=== PATIENT | female | born 1935 | race Caucasian/White ===

== ENCOUNTER → 2016-10-02 | Outpatient (CLI) | payer MEDICARE ==
[~2016-10-02] MED LIST: ALN70T; ALPR0.25 PO; ASP81TEC; ATOR10TA66; DICL75TA2; EZET10TA5; FENT1PAT9; HCT25T; LVT.05T; OMEP20CA12; ONDA4TAB8 PO; PRV20T; centrum silver; viactiv
--- NOTE | 2016-10-02 15:23 | Diagnostic Imaging Report ---
INDICATION: Digital mammogram bilateral screening. This study was compared to the prior exam of 09/27/15, 02/11/14 and 12/19/12. At this time, there are no current complaints. The current study was also evaluated with a Computer Aided Detection (CAD) system. FINDINGS: The fibroglandular tissue in both breasts is heterogeneously dense. This does limit the sensitivity of this exam. Overall, there does not appear to have been any significant change when compared to the prior study. No primary or secondary sign of malignancy is noted. IMPRESSION: There is no radiographic evidence for malignancy. ACR BI-RADS Category 1: Negative. Result letter will be mailed to the patient. Note: At least 10% of breast cancer is not imaged by mammography. Dictated by: Dictated on workstation # [id number]
== END ==
LOC: RAD 08:58
PROVIDERS: ATTEND Nurse Practitioner Family
DX: Z12.31 Encounter for screening mammogram for malignant neoplasm of breast (principal)

== ENCOUNTER → 2016-11-22 | Outpatient (CLI) | payer MEDICARE ==
--- OUTSIDE RECORDS SUMMARY | 2016-11-22 15:25 | XMS REPORT | Continuity of Care Document ---
Author Author [facility] Organization [facility] Address Unknown Phone Unavailable Allergies Active Description Code Type Severity Reaction Onset Reported/Identified Relationship to Patient Clinical Status Yes raloxifene [id number] Drug Allergy Unknown N/A 02/09/2008 Yes ciprofloxacin [id number] Drug Allergy Mild N/A 09/21/2015 Yes gabapentin [id number] Drug Allergy Mild N/A 09/21/2015 Yes methylprednisolone [id number] Drug Allergy Mild N/A 09/21/2015 Yes promethazine [id number] Drug Allergy Mild N/A 09/21/2015 Yes tramadol [id number] Drug Allergy Mild N/A 09/21/2015 Yes Penicillins [id number] Drug Allergy Moderate RASH 11/25/2015 Medications Problems Date Dx Coded Attending Type Code Diagnosis Diagnosed By 05/01/2010 Ot 530.81 05/01/2010 Ot 535.40 05/01/2010 Ot 569.0 05/01/2010 Ot 578.1 08/20/2013 LINDA FOUNTAIN, VICTORINO Azar Ot 723.4 BRACHIAL NEURITIS NOS 12/09/2014 Ot 625.8 12/17/2014 Ot 625.8 09/15/2015 Ot V76.12 09/15/2015 Ot 722.10 09/15/2015 Ot V45.4 09/15/2015 Ot 733.90 09/15/2015 Ot V76.12 09/15/2015 EVELINA MCDANIEL Ot V76.12 09/15/2015 Ot 625.8 09/21/2015 Ot V76.12 09/21/2015 Ot 722.10 09/21/2015 Ot V45.4 09/21/2015 Ot 733.90 09/21/2015 Ot V76.12 09/21/2015 EVELINA MCDANIEL Ot V76.12 09/21/2015 Ot 625.8 09/21/2015 MICHELLE FOUNTAIN, KYRIE Azar Ot M54.5 09/21/2015 LAXMI MÁRQUEZ DO Ot 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 09/21/2015 LAXMI MÁRQUEZ DO Ot K42.9 UMBILICAL HERNIA WITHOUT OBSTRUCTION OR 09/21/2015 LAXMI MÁRQUEZ DO Ot K57.90 DVRTCLOS OF INTEST, PART UNSP, W/O PERF 09/21/2015 LAXMI MÁRQUEZ DO Ot R10.30 LOWER ABDOMINAL PAIN, UNSPECIFIED 09/21/2015 LAXMI MÁRQUEZ DO Ot R11.2 NAUSEA WITH VOMITING, UNSPECIFIED 10/21/2015 Ot V76.12 10/21/2015 Ot 722.10 10/21/2015 Ot V45.4 10/21/2015 Ot 733.90 10/21/2015 Ot V76.12 10/21/2015 EVELINA MCDANIEL Ot V76.12 10/21/2015 Ot 625.8 10/21/2015 KYRIE MARTINEZ MD Ot M54.5 10/21/2015 HA LAWRENCE APRN Ot Z12.31 10/21/2015 KYRIE MARTINEZ MD Ot M51.16 INTERVERTEBRAL DISC DISORDERS W RADICULO 10/21/2015 KYRIE MARTINEZ MD Ot M53.3 SACROCOCCYGEAL DISORDERS, NOT ELSEWHERE 10/21/2015 KYRIE MARTINEZ MD Ot M96.1 POSTLAMINECTOMY SYNDROME, NOT ELSEWHERE 10/21/2015 KYRIE MARTINEZ MD Ot Z79.899 OTHER GROUP HOME (CURRENT) DRUG THERAPY 10/25/2015 HA LAWRENCE APRN Ot Z12.31 11/18/2015 JA SANCHEZ DO Ot I51.7 CARDIOMEGALY 11/18/2015 JA SANCHEZ DO Ot K21.9 GASTRO-ESOPHAGEAL REFLUX DISEASE WITHOUT 11/18/2015 JA SANCHEZ DO Ot K59.00 CONSTIPATION, UNSPECIFIED 11/18/2015 JA SANCHEZ DO Ot M19.90 UNSPECIFIED OSTEOARTHRITIS, UNSPECIFIED 11/18/2015 JA SANCHEZ DO Ot R25.2 CRAMP AND SPASM 11/18/2015 JA SANCHEZ DO, Ot T46.6X5A ADVERSE EFFECT OF ANTIHYPERLIP AND ANTIA 11/25/2015 ANDRIA MILLAN MD Ot G89.29 OTHER CHRONIC PAIN 11/25/2015 ODGERS MD, ANDRIA K Ot R10.13 EPIGASTRIC PAIN 11/25/2015 YANA FOUNTAIN, ANDRIA Alcantar Ot R11.10 VOMITING, UNSPECIFIED 11/26/2015 YANA FOUNTAIN, ANDRIA Alcantar Ot G89.29 11/26/2015 ANDRIA MILLAN MD Ot R10.13 11/26/2015 ANDRIA MILLAN MD Ot R11.10 11/27/2015 ANDRIA MILLAN MD Ot G89.29 11/27/2015 ANDRIA MILLAN MD Ot R10.13 11/27/2015 ANDRIA MILLAN MD Ot R11.10 12/30/2015 HA LAWRENCE CLIENT INSIGHTS CONSULTANT Ot R10.2 PELVIC AND PERINEAL PAIN 12/30/2015 HA LAWRENCE CLIENT INSIGHTS CONSULTANT Ot R10.31 RIGHT LOWER QUADRANT PAIN 12/30/2015 HA LAWRENCE CLIENT INSIGHTS CONSULTANT Ot R10.32 LEFT LOWER QUADRANT PAIN 01/04/2016 SAMI SORIA Ot K57.90 DVRTCLOS OF INTEST, PART UNSP, W/O PERF 01/05/2016 HA LAWRENCE CLIENT INSIGHTS CONSULTANT Ot R10.2 PELVIC AND PERINEAL PAIN 01/05/2016 HA LAWRENCE CLIENT INSIGHTS CONSULTANT Ot R10.31 RIGHT LOWER QUADRANT PAIN 01/05/2016 HA LAWRENCE CLIENT INSIGHTS CONSULTANT Ot R10.32 LEFT LOWER QUADRANT PAIN 01/25/2016 SAMI SORIA Ot K57.90 DVRTCLOS OF INTEST, PART UNSP, W/O PERF 02/03/2016 SAMI SORIA Ot K57.90 DVRTCLOS OF INTEST, PART UNSP, W/O PERF 09/27/2016 Ot 722.10 LUMBAR DISC DISPLACEMENT 09/27/2016 Ot V45.4 ARTHRODESIS STATUS 09/27/2016 Ot 733.90 BONE CARTILAGE DIS NOS 09/27/2016 Ot V76.12 OTH SCREEN MAMMO-MALIGN NEOPLASM OF CATHI 09/27/2016 EVELINA MCDANIEL Ot V76.12 OTH SCREEN MAMMO-MALIGN NEOPLASM OF CATHI 09/27/2016 Ot 625.8 FEM GENITAL SYMPTOMS NEC 09/27/2016 MICHELLE FOUNTAIN, KYRIE Azar Ot M54.5 LOW BACK PAIN 09/27/2016 HA LAWRENCE CLIENT INSIGHTS CONSULTANT Ot Z12.31 ENCNTR SCREEN MAMMOGRAM FOR MALIGNANT NE 09/27/2016 HA LAWRENCE CLIENT INSIGHTS CONSULTANT Ot R10.2 PELVIC AND PERINEAL PAIN 09/27/2016 HA LAWRENCE CLIENT INSIGHTS CONSULTANT Ot R10.31 RIGHT LOWER QUADRANT PAIN 09/27/2016 HA LAWRENCE CLIENT INSIGHTS CONSULTANT Ot R10.32 LEFT LOWER QUADRANT PAIN 09/27/2016 SAMI SORIA Ot K57.90 DVRTCLOS OF INTEST, PART UNSP, W/O PERF 10/02/2016 HA LAWRENCE CLIENT INSIGHTS CONSULTANT Ot Z12.31 ENCNTR SCREEN MAMMOGRAM FOR MALIGNANT NE 10/03/2016 HA LAWRENCE APRN Ot Z12.31 ENCNTR SCREEN MAMMOGRAM FOR MALIGNANT NE 10/30/2016 HA LAWRENCE APRN Ot Z12.31 ENCNTR SCREEN MAMMOGRAM FOR MALIGNANT NE 11/22/2016 Ot 722.10 LUMBAR DISC DISPLACEMENT 11/22/2016 Ot V45.4 ARTHRODESIS STATUS 11/22/2016 Ot 733.90 BONE CARTILAGE DIS NOS 11/22/2016 Ot V76.12 OTH SCREEN MAMMO-MALIGN NEOPLASM OF CATHI 11/22/2016 EVELINA MCDANIEL Ot V76.12 OTH SCREEN MAMMO-MALIGN NEOPLASM OF CATHI 11/22/2016 Ot 625.8 FEM GENITAL SYMPTOMS NEC 11/22/2016 MICHELLE FOUNTAIN, KYRIE Azar Ot M54.5 LOW BACK PAIN 11/22/2016 HA LAWRENCE APRN Ot Z12.31 ENCNTR SCREEN MAMMOGRAM FOR MALIGNANT NE 11/22/2016 HA LAWRENCE APRN Ot R10.2 PELVIC AND PERINEAL PAIN 11/22/2016 HA LAWRENCE APRN Ot R10.31 RIGHT LOWER QUADRANT PAIN 11/22/2016 HA LAWRENCE APRN Ot R10.32 LEFT LOWER QUADRANT PAIN 11/22/2016 SAMI SORIA Ot K57.90 DVRTCLOS OF INTEST, PART UNSP, W/O PERF 11/22/2016 HA LAWRENCE CLIENT INSIGHTS CONSULTANT Ot Z12.31 ENCNTR SCREEN MAMMOGRAM FOR MALIGNANT NE Procedures Results Encounters ACCT No. Visit Date/Time Discharge Status Pt. Type Provider Facility Loc./Unit Complaint [id number] 11/25/2015 05:48:00 2015 09:14:00 DIS Emergency YANA FOUNTAIN, ANDRIA Katharine [facility] ER ABDOMINAL PAIN,VOMITING [id number] 11/18/2015 02:35:00 2015 04:43:00 DIS Emergency JA SANCHEZ DO [facility] ER BURNING THRU CHEST,LEGS NUMB,NAUSEA [id number] 10/21/2015 11:34:00 2015 12:35:00 DIS Outpatient KYRIE MARTINEZ MD [facility] CARD DISC DISORDER SACROCOCCYGEAL DISORDER [id number] 09/21/2015 06:41:00 2015 09:23:00 DIS Emergency LAXMI MÁRQUEZ DO [facility] ER ABD PAIN [id number] 02/11/2014 08:02:00 2013 23:59:59 CLS Outpatient EVELINA MCDANIEL [facility] RAD SCREENING [id number] 08/20/2013 07:40:00 2012 13:55:00 DIS Outpatient VICTORINO MCKEON MD [facility] RAD CERVICAL RADICULOPATHY [id number] 11/22/2016 15:21:00 ACT Outpatient HA LAWRENCE APRN [facility] RAD LOW ABDOMINAL PAIN [id number] 10/02/2016 08:58:00 ACT Outpatient HA LAWRENCE APRN [facility] RAD SCREENING [id number] 01/03/2016 14:10:00 ACT Outpatient SAMI SORIA [facility] RAD LOWER ABD PAIN,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 [id number] 11/17/2015 15:59:00 ACT Outpatient HA LAWRENCE APRN [facility] RAD ABD PAIN [id number] 09/27/2015 09:20:00 ACT Outpatient HA LAWRENCE APRN [facility] RAD SCREENING [id number] 09/15/2015 09:33:00 ACT Outpatient KYRIE MARTINEZ MD [facility] RAD LOW PAIN BACK [id number] 11/16/2014 12:12:00 Document Registration [id number] 12/19/2012 09:12:00 Document Registration [id number] 08/09/2011 09:45:00 Document Registration [id number] 01/31/2011 06:55:00 Document Registration [id number] 05/01/2010 07:17:00 Document Registration
--- NOTE | 2016-11-22 17:09 | Diagnostic Imaging Report ---
INDICATION: Right lower quadrant pain and hematuria. KUB obtained at 03:45 p.m. and is compared to 11/25/2015. Postop changes in the lumbar spine are again noted. Metallic lead overlying the right side of the pelvis is again noted. There is degenerative change of the SI joints and lower lumbar spine. Bowel gas pattern is unremarkable. There is no suspicious calcification. There are some phleboliths on the left side of the pelvis which are unchanged compared to the prior study. IMPRESSION: Stable appearance compared with 11/25/2015. No suspicious calcification. Chronic bony changes as described above. Dictated by: Dictated on workstation # [id number]
== END ==
LOC: RAD 15:21
PROVIDERS: ATTEND Nurse Practitioner Family
DX: R10.31 Right lower quadrant pain (principal); R31.9 Hematuria, unspecified
CPT/HCPCS: 74000

== ENCOUNTER 2017-09-28 23:17 | Emergency (ER) | payer MEDICARE ==
[~2017-09-28] VITALS: Ht 152.4 cm; Wt 55.3 kg
--- OUTSIDE RECORDS SUMMARY | 2017-09-28 23:24 | XMS REPORT | Continuity of Care Document ---
Author Author [facility] Organization [facility] Address Unknown Phone Unavailable Allergies Active Description Code Type Severity Reaction Onset Reported/Identified Relationship to Patient Clinical Status Yes raloxifene [id number] Drug Allergy Unknown N/A 02/09/2008 Yes ciprofloxacin [id number] Drug Allergy Mild N/A 09/21/2015 Yes gabapentin [id number] Drug Allergy Mild N/A 09/21/2015 Yes methylprednisolone [id number] Drug Allergy Mild N/A 09/21/2015 Yes promethazine [id number] Drug Allergy Mild N/A 09/21/2015 Yes tramadol [id number] Drug Allergy Mild N/A 09/21/2015 Yes Penicillins [id number] Drug Allergy Moderate RASH 11/25/2015 Medications There is no data. Problems Date Dx Coded Attending Type Code [...] MCDANIEL Ot V76.12 09/21/2015 Ot 625.8 09/21/2015 KYRIE MARTINEZ MD Ot M54.5 09/21/2015 LAXMI MÁRQUEZ DO Ot [...] 10/21/2015 KYRIE MARTINEZ MD Ot Z79.899 OTHER EXCHANGE ARCHITECT (CURRENT) DRUG THERAPY 10/25/2015 HA LAWRENCE APRN [...] MD Ot G89.29 OTHER CHRONIC PAIN 11/25/2015 YANA FOUNTAIN, ANDRIA Alcantar Ot R10.13 EPIGASTRIC PAIN 11/25/2015 YANA FOUNTAIN, ANDRIA Alcantar Ot R11.10 VOMITING, UNSPECIFIED 11/26/2015 YANA FOUNTAIN, ANDRIA Alcantar Ot G89.29 11/26/2015 ANDRIA MILLAN MD Ot R10.13 11/26/2015 ANDRIA MILLAN MD Ot R11.10 11/27/2015 ANDRIA MILLAN MD Ot G89.29 11/27/2015 ANDRIA MILLAN MD Ot R10.13 11/27/2015 ANDRIA MILLAN MD Ot R11.10 12/30/2015 HA LAWRENCE GREASE PRESS HELPER Ot R10.2 PELVIC AND PERINEAL PAIN 12/30/2015 HA LAWRENCE GREASE PRESS HELPER Ot R10.31 RIGHT LOWER QUADRANT PAIN 12/30/2015 HA LAWRENCE APRN Ot R10.32 LEFT LOWER QUADRANT PAIN 01/04/2016 SAMI SORIA Ot K57.90 DVRTCLOS OF INTEST, PART UNSP, W/O PERF 01/05/2016 HA LAWRENCE GREASE PRESS HELPER Ot R10.2 PELVIC AND PERINEAL PAIN 01/05/2016 HA LAWRENCE GREASE PRESS HELPER Ot R10.31 RIGHT LOWER QUADRANT PAIN 01/05/2016 HA LAWRENCE GREASE PRESS HELPER Ot R10.32 LEFT LOWER QUADRANT PAIN 01/25/2016 [...] M54.5 LOW BACK PAIN 09/27/2016 HA LAWRENCE APRN Ot Z12.31 ENCNTR SCREEN MAMMOGRAM FOR MALIGNANT NE 09/27/2016 HA LAWRENCE GREASE PRESS HELPER Ot R10.2 PELVIC AND PERINEAL PAIN 09/27/2016 HA LAWRENCE GREASE PRESS HELPER Ot R10.31 RIGHT LOWER QUADRANT PAIN 09/27/2016 HA LAWRENCE APRN Ot R10.32 LEFT LOWER QUADRANT PAIN 09/27/2016 SAMI SORIA Ot K57.90 DVRTCLOS OF INTEST, PART UNSP, W/O PERF 10/02/2016 AH LAWRENCE GREASE PRESS HELPER Ot Z12.31 ENCNTR SCREEN MAMMOGRAM FOR MALIGNANT NE 10/03/2016 HA LAWRENCE APRN Ot Z12.31 ENCNTR SCREEN MAMMOGRAM FOR MALIGNANT NE 10/30/2016 HA LAWRENCE GREASE PRESS HELPER Ot Z12.31 ENCNTR SCREEN MAMMOGRAM FOR MALIGNANT NE 11/22/2016 Ot 722.10 LUMBAR DISC DISPLACEMENT 11/22/2016 Ot V45.4 ARTHRODESIS STATUS 11/22/2016 Ot 733.90 BONE CARTILAGE DIS NOS 11/22/2016 Ot V76.12 OTH SCREEN MAMMO-MALIGN NEOPLASM OF CATHI 11/22/2016 EVELINA MCDANIELP Ot V76.12 OTH SCREEN MAMMO-MALIGN NEOPLASM OF CATHI 11/22/2016 Ot 625.8 FEM GENITAL SYMPTOMS NEC 11/22/2016 MICHELLE FOUNTAIN, KYRIE Azar Ot M54.5 LOW BACK PAIN 11/22/2016 HA LAWRENCE GREASE PRESS HELPER Ot Z12.31 ENCNTR SCREEN MAMMOGRAM FOR MALIGNANT NE 11/22/2016 HA LAWRENCE GREASE PRESS HELPER Ot R10.2 PELVIC AND PERINEAL PAIN 11/22/2016 HA LAWRENCE GREASE PRESS HELPER Ot R10.31 RIGHT LOWER QUADRANT PAIN 11/22/2016 HA LAWRENCE GREASE PRESS HELPER Ot R10.32 LEFT LOWER QUADRANT PAIN 11/22/2016 SAMI SORIA Ot K57.90 DVRTCLOS OF INTEST, PART UNSP, W/O PERF 11/22/2016 HA LAWRENCE APRN Ot Z12.31 ENCNTR SCREEN MAMMOGRAM FOR MALIGNANT NE 11/22/2016 HA LAWRENCE GREASE PRESS HELPER Ot R10.31 RIGHT LOWER QUADRANT PAIN 11/22/2016 HA LAWRENCE GREASE PRESS HELPER Ot R31.9 HEMATURIA, UNSPECIFIED 12/13/2016 HA LAWRENCE Leia GREASE PRESS HELPER Ot R10.31 RIGHT LOWER QUADRANT PAIN 12/13/2016 HA LAWRENCE Leia GREASE PRESS HELPER Ot R31.9 HEMATURIA, UNSPECIFIED 12/24/2016 HA LAWRENCE Leia GREASE PRESS HELPER Ot R10.31 RIGHT LOWER QUADRANT PAIN 12/24/2016 HA LAWRENCE Leia GREASE PRESS HELPER Ot R31.9 HEMATURIA, UNSPECIFIED Procedures There is no data. Results There is no data. Encounters ACCT No. Visit Date/Time Discharge Status Pt. Type Provider Facility Loc./Unit Complaint [id number] 09/17/2017 11:02:00 09/17/2017 23:59:59 CLS Preadmit HA LAWRENCE APRN [facility] RAD SCREENING [id number] 11/22/2016 15:21:00 11/22/2016 23:59:59 CLS Outpatient HA LAWRENCE APRN [facility] RAD LOW ABDOMINAL PAIN [id number] 10/02/2016 08:58:00 10/02/2016 23:59:59 CLS Outpatient HA LAWRENCE APRN [facility] RAD SCREENING [id number] 01/03/2016 14:10:00 01/03/2016 23:59:59 CLS Outpatient SAMI SORIA [facility] RAD LOWER ABD PAIN,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 [id number] 11/25/2015 05:48:00 11/25/2015 09:14:00 DIS Emergency ANDRIA MILLAN MD [facility] ER ABDOMINAL PAIN,VOMITING [id number] 11/18/2015 02:35:00 11/18/2015 04:43:00 DIS Emergency JA SANCHEZ DO [facility] ER BURNING THRU CHEST,LEGS NUMB,NAUSEA [id number] 11/17/2015 15:59:00 11/17/2015 23:59:59 CLS Outpatient HA LAWRENCE APRN [facility] RAD ABD PAIN [id number] 10/21/2015 11:34:00 10/21/2015 12:35:00 DIS Outpatient KYRIE MARTINEZ MD [facility] CARD DISC DISORDER SACROCOCCYGEAL DISORDER [id number] 09/27/2015 09:20:00 09/27/2015 23:59:59 CLS Outpatient HA LAWRENCE APRN [facility] RAD SCREENING [id number] 09/21/2015 06:41:00 09/21/2015 09:23:00 DIS Emergency YULISA LAXMI ANGUIANO [facility] ER ABD PAIN [id number] 09/15/2015 09:33:00 09/15/2015 23:59:59 CLS Outpatient KYRIE MARTINEZ MD [facility] RAD LOW PAIN BACK [id number] 02/11/2014 08:02:00 02/11/2014 23:59:59 CLS Outpatient EVELINA MCDANIEL [facility] RAD SCREENING [id number] 08/20/2013 07:40:00 08/20/2013 13:55:00 DIS Outpatient VICTORINO MCKEON MD [facility] RAD CERVICAL RADICULOPATHY [id number] 11/16/2014 12:12:00 Document Registration [id number] 12/19/2012 09:12:00 Document Registration [id number] 08/09/2011 09:45:00 Document Registration [id number] 01/31/2011 06:55:00 Document Registration [id number] 05/01/2010 07:17:00 Document Registration
[2017-09-28] MEDS ORDERED: NS IV 500 ML 500 ML IV ONE (23:48)
--- NOTE | 2017-09-28 23:56 | ED Abdominal Pain ---
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 REPORTS PAIN WOKE HER FROM SLEEP. ALSO REPORTS DIFFICULTY AMBULATING DUE TO PAIN. NO OTHER C/O VOICED Sepsis Screen: No Definite Risk Source of Information: Patient, Family (daughter) Exam Limitations: No Limitations History of Present Illness Date Seen by Provider: Sep 28, 2017 Time Seen By Provider: 23:45 Initial Comments Patient presents the ER by private conveyance with a chief complaint that tonight she was woken up by an ambulance showing up at her neighbor's house and she tried to get up but then started experiencing excruciating new onset of pain in her right side abdomen especially right lower abdomen that made it hard for her to move her legs she still describes as feeling leaden especially on the right side. She's having no other neurologic symptoms, numbness, tingling. She says it just hurts to move her legs. She's had no nausea, fevers, chills, diarrhea. Last bowel movement was this morning. She is regular daily bowel movements. She has not taken anything for the pain yet. She has had her appendix out when she was a child as well as a hysterectomy many years ago. She says she's had a colonoscopy but it has probably been 5-10 years ago and she denies any history of diverticulosis or polyps. She denies any recent trauma. 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 Allergies and Home Medications Allergies Coded Allergies: Penicillins (Verified Allergy, Intermediate, RASH, 11/25/15) ciprofloxacin (Verified Allergy, Mild, 09/21/15) gabapentin (Verified Allergy, Mild, 09/21/15) methylprednisolone (Verified Allergy, Mild, 09/21/15) promethazine (Verified Allergy, Mild, 09/21/15) tramadol (Verified Allergy, Mild, 09/21/15) raloxifene (Verified Allergy, Unknown, 02/09/08) Home Medications Alendronate Sodium 70 Mg Tablet, (Reported) Alprazolam 0.25 Mg Tablet, 0.25 MG PO ONCE PRN for INSOMNIA, #5 Prescribed by: ANDRIA MILLAN on 11/25/15 0844 Alprazolam 0.25 Mg Tablet, 0.25 MG PO HS, #5 Prescribed by: ANDRIA MILLAN on 11/25/15 0846 Aspirin 81 Mg Tablet, (Reported) Atorvastatin Calcium 10 Mg Tablet, #30 (Reported) Diclofenac Sodium 75 Mg Tablet.dr, #180 (Reported) Ezetimibe 10 Mg Tablet, (Reported) Fentanyl 1 Each Patch.td72, #10 (Reported) Hydrochlorothiazide 25 Mg Tablet, (Reported) Levothyroxine Sodium 50 Mcg Tablet, (Reported) Omeprazole 20 Mg Capsule.dr, (Reported) Ondansetron 4 Mg Tab.rapdis, 4 MG PO Q4H, #10 Prescribed by: LAXMI MÁRQUEZ on 09/21/15 0848 Pravastatin Sodium 20 Mg Tablet, (Reported) [centrum silver] , (Reported) [viactiv ] , (Reported) Review of Systems Constitutional: No chills, No diaphoresis, No fever Respiratory: Denies Cough, Denies Shortness of Air Cardiovascular: Denies Chest Pain, Denies Palpitations, Other (no history of coronary artery disease) Gastrointestinal: See HPI, Abdomen Distended, Abdominal Pain (right side), Denies Constipated, Denies Diarrhea, Denies Nausea Genitourinary: Denies Burning, Denies Discharge, Frequency Skin: No pruritus, No rash Psychiatric/Neurological: Denies Headache, Denies Numbness, Denies Paresthesia Past [id number] Hx Patient Social History Alcohol Use: Denies Use Recreational Drug Use: No Smoking Status: Never a Smoker Recent Foreign Travel: No Contact w/Someone Who Travel: No Recent Infectious Disease Expo: No Recent Hopitalizations: Yes Physical Abuse: No Sexual Abuse: No Mistreated: No Fear: No Immunizations Up To Date Tetanus Booster (TDap): Unknown Surgeries History of Surgeries: Yes Surgeries: Appendectomy, Bladder Surgery, Breast, Eye Surgery, Gallbladder, Hysterectomy, Oophorectomy, Orthopedic, Rectal, Tonsillectomy Respiratory History of Respiratory Disorde: No Cardiovascular History of Cardiac Disorders: Yes Cardiac Disorders: High Cholesterol, Hypertension Neurological History of Neurological Disord: No Reproductive System Hx Reproductive Disorders: No 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 Gastrointestinal History of Gastrointestinal Di: Yes Gastrointestinal Disorders: Gastroesophageal Reflux, Diverticulosis Musculoskeletal History of Musculoskeletal Dis: Yes Musculoskeletal Disorders: Osteoporosis, Arthritis, Chronic Back Pain, Fractures Endocrine History of Endocrine Disorders: Yes Endocrine Disorders: Hypothyroidsim Cancer History of Cancer: No Psychosocial History of Psychiatric Problem: Yes Behavioral Health Disorders: Depression Suicide Risk Score: 0 Integumentary History of Skin or Integumenta: No Blood Transfusions History of Blood Disorders: No Physical Exam Vital Signs VS - Last 72 Hours, by Label 09/28/17 23:23 Temp 98.2 Pulse 66 Resp 20 B/P (MAP) 170/90 (116) Pulse Ox 97 O2 Delivery Room Air Capillary Refill : Less Than 3 Seconds General Appearance: WD/WN, mild distress HEENT: PERRL/EOMI, pharynx normal (oral mucosa is moist) Respiratory: chest non-tender, lungs clear, normal breath sounds, no respiratory distress, no accessory muscle use Cardiovascular: normal peripheral pulses, regular rate, rhythm, no edema Peripheral Pulses: 2+ Dorsalis Pedis (R), 2+ Left Dors-Pedis (L), 2+ Radial Pulses (R), 2+ Radial Pulses (L) Gastrointestinal: normal bowel sounds (mildly hypoactive), soft, no organomegaly, tenderness (right upper quadrant and right lower quadrant but no pain over [place]'s point and negative for Johnson sign. Also some epigastric and periumbilical tenderness) Extremities: normal range of motion, non-tender, normal inspection, no pedal edema, no calf tenderness, normal capillary refill Back: normal inspection, no CVA tenderness Neurologic/Psychiatric: alert, normal mood/affect, oriented x 3, motor weakness (right lower extremity 4 out of 5 motor strength are says 5 out of 5 on the left side), No sensory deficit Skin: normal color, warm/dry Focused Exam Evaluation Lactate Level Laboratory Tests 09/28/17 00:15: Lactic Acid Level 0.69 Lactic Acid Level Laboratory Tests Test 09/28/17 00:15 Lactic Acid Level 0.69 MMOL/L (0.50-2.00) Progress/Results/Core Measures Results/Orders Lab Results Laboratory Tests Test 09/28/17 00:04 09/28/17 00:15 Range/Units White Blood Count 5.8 4.3-11.0 10^3/uL Red Blood Count 3.91 L 4.35-5.85 10^6/uL Hemoglobin 11.8 11.5-16.0 G/DL Hematocrit 35 35-52 % Mean Corpuscular Volume 89 80-99 FL Mean Corpuscular Hemoglobin 30 25-34 PG Mean Corpuscular Hemoglobin Concent 34 32-36 G/DL Red Cell Distribution Width 12.8 10.0-14.5 % Platelet Count 256 130-400 10^3/uL Mean Platelet Volume 10.4 7.4-10.4 FL Neutrophils (%) (Auto) 51 42-75 % Lymphocytes (%) (Auto) 31 12-44 % Monocytes (%) (Auto) 13 H 0-12 % Eosinophils (%) (Auto) 3 0-10 % Basophils (%) (Auto) 1 0-10 % Neutrophils # (Auto) 3.0 1.8-7.8 X 10^3 Lymphocytes # (Auto) 1.8 1.0-4.0 X 10^3 Monocytes # (Auto) 0.8 0.0-1.0 X 10^3 Eosinophils # (Auto) 0.2 0.0-0.3 10^3/uL Basophils # (Auto) 0.1 0.0-0.1 10^3/uL D-Dimer 0.89 H 0.00-0.49 UG/ML Urine Color YELLOW Urine Clarity CLEAR Urine pH 7 5-9 Urine Specific [place] 1.010 L 1.016-1.022 Urine Protein NEGATIVE NEGATIVE Urine Glucose (UA) NEGATIVE NEGATIVE Urine Ketones NEGATIVE NEGATIVE Urine Nitrite NEGATIVE NEGATIVE Urine Bilirubin NEGATIVE NEGATIVE Urine Urobilinogen NORMAL NORMAL MG/DL Urine Leukocyte Esterase NEGATIVE NEGATIVE Urine RBC (Auto) NEGATIVE NEGATIVE Urine RBC NONE /HPF Urine WBC RARE /HPF Urine Squamous Epithelial Cells 2-5 /HPF Urine Crystals PRESENT H /LPF Urine Amorphous Sediment FEW RINA PHOSPHATE H /LPF Urine Bacteria TRACE /HPF Urine Casts NONE /LPF Urine Mucus NEGATIVE /LPF Urine Culture Indicated NO Sodium Level 143 135-145 MMOL/L Potassium Level 3.6 3.6-5.0 MMOL/L Chloride Level 108 H 98-107 MMOL/L Carbon Dioxide Level 23 21-32 MMOL/L Anion Gap 12 5-14 MMOL/L Blood Urea Nitrogen 14 7-18 MG/DL Creatinine 0.89 0.60-1.30 MG/DL Estimat Glomerular Filtration Rate 60 BUN/Creatinine Ratio 16 Glucose Level 104 70-105 MG/DL Calcium Level 9.7 8.5-10.1 MG/DL Magnesium Level 2.0 1.8-2.4 MG/DL Total Bilirubin 0.3 0.1-1.0 MG/DL Aspartate Amino Transf (AST/SGOT) 20 5-34 U/L Alanine Aminotransferase (ALT/SGPT) 19 0-55 U/L Alkaline Phosphatase 80 40-136 U/L C-Reactive Protein High Sensitivity 0.05 0.00-0.50 MG/DL Total Protein 6.7 6.4-8.2 GM/DL Albumin 3.9 3.2-4.5 GM/DL Lactic Acid Level 0.69 0.50-2.00 MMOL/L My Orders Orders - EMERSON STEELE Cbc With Automated Diff (09/28/17 23:48) Comprehensive Metabolic Panel (09/28/17 23:48) Hs C Reactive Protein (09/28/17 23:48) Fibrin Degradation Products (09/28/17 23:48) Lactic Acid Analyzer (09/28/17 23:48) Magnesium (09/28/17 23:48) Ua Culture If Indicated (09/28/17 23:48) Saline Lock/Iv-Start (09/28/17 23:48) Ns Iv 500 Ml (Sodium Chloride 0.9%) (09/28/17 23:48) Post Void Residual Assessment (09/28/17 23:48) Fentanyl Injection (Sublimaze Injection (09/29/17 00:00) Ct Abdomen/Pelvis W (09/29/17 00:01) Iohexol Injection (Omnipaque 350 Mg/Ml 1 (09/29/17 01:00) Ns (Ivpb) (Sodium Chloride 0.9% Ivpb Bag (09/29/17 01:00) Medications Given in ED Current Medications Medications Dose Ordered Sig/Kylee Route Start Time Stop Time Status Last Admin Dose Admin Fentanyl Citrate 50 mcg ONCE ONCE IVP 09/29/17 00:00 09/29/17 00:01 DC 09/29/17 00:12 50 MCG Iohexol 100 ml ONCE ONCE IV 09/29/17 01:00 09/29/17 01:01 DC 09/29/17 00:49 100 ML Sodium Chloride 100 ml ONCE ONCE IV 09/29/17 01:00 09/29/17 01:01 DC 09/29/17 00:50 80 ML Sodium Chloride 500 ml @ 0 mls/hr Q0M ONCE IV 09/28/17 23:48 09/28/17 23:51 DC 09/29/17 00:12 500 MLS/HR Vital Signs/I&O Vital Sign - Last 12Hours 09/28/17 23:23 Temp 98.2 Pulse 66 Resp 20 B/P (MAP) 170/90 (116) Pulse Ox 97 O2 Delivery Room Air Blood Pressure Mean: 116 Progress Note #1: Time: 23:56 Progress Note Differential includes UTI versus mechanical obstruction, diverticulitis, concern for her leg pain may be related to inflammation extending to the iliopsoas so we'll get a lactate and fibrin degradation products thinking about mesenteric ischemia however she does not have a history of coronary artery disease this is less likely. We'll get a lactic acid, CT of the abdomen pelvis with contrast give her some fluids. We'll start with her pain with some fentanyl as she is quite significantly tender on palpation. Progress Note #2: Time: 01:51 Progress Note Patient's pain is improved on the fentanyl however her symptoms do not seem to be from intra-abdominal process. There is no evidence of fracture in the spine seen on CT. Could be that she's having a exacerbation of her chronic back pain. She's had a nerve stimulator implanted in her back before and she has plans to follow-up with a pain management doctor to do some nerve root injections just has not his appointment up yet. It's unknown whether this 4 out of 5 motor strength on her right lower extremity is new or not so we'll get the patient up to walk and if she walks okay using a walker which is what she is home then we may recommend NSAID therapy, ice, heat, icy hot, conservative therapy with plus or minus steroids for a right lower motor radiculopathy. Progress Note #3: Time: 02:20 Progress Note Patient walked using a walker just fine. She does remember now that yesterday she was putting some heavy [place] decorations away on a stepladder and twisting as she was lifting them and felt a little wrench at that time and thinks that might explain the pain that she is feeling in the same portion of her right lower back. She would like to try prednisone and NSAID therapy and has a follow-up appointment with Dr. Nj in one month Diagnostic Imaging Diagonstic Imaging: CT Plain Films/CT/US/NM/MRI: abdomen, pelvis (with contrast) Comments Stat read impression: No acute intra-abdominal or intrapelvic process. Sigmoid diverticulosis without active inflammation. Colonic fecal stasis. Reviewed: Reviewed by Me Departure Impression Impression: Primary Impression: Lumbar back pain with radiculopathy affecting right lower extremity Disposition: 01 HOME, SELF-CARE Condition: Improved Departure-Patient Inst. Decision time for Depature: 02:21 Referrals: CRISTINA NJ MD (PCP/Family) Primary Care Physician Patient Instructions: Radiculopathy (DC) Add. Discharge Instructions: Apply ice for 20 minutes every 4-6 hours for the first 1-2 days. Use heating pads as necessary as well as icy hot or other creams. Wear your back brace on the days that it helps. Use the meloxicam 1 tablet daily for the next 4 weeks for the pain. Discontinue this if you begin to experience heartburn, chest pain. You may also use the extra strength Tylenol 1000 mg every 8 hours. Follow- up with your doctor in the next 1-2 months. Take the prednisone one tablet twice a day for the next 5 days to help reduce the swelling in your back. Prednisone can cause flushing of the face, difficulty sleeping and feeling of wired or jitteriness. If you experience these symptoms you may cut the dose in half or stop taking it altogether and follow up with your primary care physician. Plan to make your follow-up appointment with the silo painter at your next convenience. If you have incontinence of bowel and bladder, numbness or inability to stand on your leg or other new worrisome symptoms you should return to your doctor or the ER for immediate evaluation. All discharge instructions reviewed with patient and/or family. Voiced understanding. Scripts Prednisone (Prednisone) 20 Mg Tab 20 MG PO BID for 5 Days, #10 TAB 0 Refills Prov: EMERSON STEELE 09/29/17 Meloxicam (Meloxicam) 15 Mg Tablet 15 MG PO DAILY for 30 Days, #30 TAB 0 Refills Prov: EMERSON STEELE 09/29/17 Copy Copies To 1: CRISTINA NJ MD, TITUS J Sep 28, 2017 23:56
[2017-09-29] MEDS ORDERED: fentaNYL INJECTION 100 MCG/2 ML AMP IVP ONE
[2017-09-29 00:14] LABS: BASOPHILS # (AUTO) 0.1 10^3/uL (0.0-0.1); BASOPHILS % (AUTO) 1 % (0-10); BILIRUBIN,URINE NEGATIVE (NEGATIVE); CLARITY,URINE CLEAR; COLOR,URINE YELLOW; EOSINOPHILS # (AUTO) 0.2 10^3/uL (0.0-0.3); EOSINOPHILS % (AUTO) 3 % (0-10); GLUCOSE, URINE (UA) NEGATIVE (NEGATIVE); HEMATOCRIT 35 % (35-52); HEMOGLOBIN 11.8 G/DL (11.5-16.0); KETONES,URINE NEGATIVE (NEGATIVE); LEUKOCYTE ESTERASE ,URINE NEGATIVE (NEGATIVE); LYMPHOCYTES # (AUTO) 1.8 X 10^3 (1.0-4.0); LYMPHOCYTES % (AUTO) 31 % (12-44); MEAN CORPUSCULAR HEMOGLOBIN 30 PG (25-34); MEAN CORPUSCULAR HGB CONC 34 G/DL (32-36); MEAN CORPUSCULAR VOLUME 89 FL (80-99); MEAN PLATELET VOLUME 10.4 FL (7.4-10.4); MONOCYTES # (AUTO) 0.8 X 10^3 (0.0-1.0); MONOCYTES % (AUTO) 13 % (0-12); NEUTROPHILS % (AUTO) 51 % (42-75); NITRITE,URINE NEGATIVE (NEGATIVE); PH,URINE 7 (5-9); PLATELET COUNT 256 10^3/uL (130-400); PROTEIN,URINE NEGATIVE (NEGATIVE); RED BLOOD COUNT 3.91 10^6/uL (4.35-5.85); RED CELL DISTRIBUTION WIDTH 12.8 % (10.0-14.5); UROBILINOGEN,URINE NORMAL (NORMAL); WHITE BLOOD COUNT 5.8 10^3/uL (4.3-11.0)
[2017-09-29 00:22] LABS: AMORPHOUS SEDIMENT,UR FEW AMOR PHOSPHATE /LPF; BACTERIA,URINE TRACE /HPF; WBC,URINE RARE /HPF
[2017-09-29 00:31] LABS: ALBUMIN 3.9 GM/DL (3.2-4.5); BILIRUBIN,TOTAL 0.3 MG/DL (0.1-1.0); CALCIUM 9.7 MG/DL (8.5-10.1); CREATININE SERUM 0.89 MG/DL (0.60-1.30); POTASSIUM 3.6 MMOL/L (3.6-5.0); TOTAL PROTEIN 6.7 GM/DL (6.4-8.2)
[2017-09-29] MEDS ORDERED: IOHEXOL 350 MG/ML 100 ML (OMNIPAQUE 350) VIAL IV ONE (01:00)
[2017-09-29] MEDS ORDERED: NS 100 ML (IVPB) BAG IV ONE (01:00)
[2017-09-29] MEDS ORDERED: MELO15TA39 PO (02:25)
[2017-09-29] MEDS ORDERED: PRD20T PO (02:25)
[2017-09-29 02:34] VITALS: BP 157/89
--- NOTE | 2017-09-29 08:22 | Diagnostic Imaging Report ---
PROCEDURE: CT abdomen and pelvis with contrast. TECHNIQUE: Multiple contiguous axial images were obtained through the abdomen and pelvis after administration of intravenous contrast. INDICATION: Right lower quadrant pain with history of hysterectomy, cholecystectomy and appendectomy. Comparison is made with prior examination from 01/03/2016. FINDINGS: Heart size is normal. The lung bases are clear. The liver is normal in size without focal lesions. Gallbladder is unremarkable. There is no biliary duct dilatation. The spleen is normal. The pancreas and adrenal glands are unremarkable. The kidneys are normal in appearance. There is some mild atherosclerotic calcification of the aorta. There are postsurgical and degenerative changes in the spine. There is diverticular disease of the sigmoid colon without evidence of diverticulitis. Bladder is normal. There is no free air. There is no ascites. There are no focal inflammatory changes. There is moderate amount of retained fecal material within the colon which may reflect some degree of constipation. IMPRESSION: No acute abnormality in the abdomen or pelvis. Sigmoid diverticulosis without diverticulitis. Moderate amount of retained fecal material may reflect some degree of constipation Dictated by: Dictated on workstation # [id number]
== END 2017-09-29 02:34 | disposition home or self-care (01) ==
LOC: EDUNIT# 23:17 → ER 23:19
DX: M54.16 Radiculopathy, lumbar region (principal); F32.9 Major depressive disorder, single episode, unspecified; E03.9 Hypothyroidism, unspecified; K21.9 Gastro-esophageal reflux disease without esophagitis; E78.00 Pure hypercholesterolemia, unspecified; I10 Essential (primary) hypertension; Z90.49 Acquired absence of other specified parts of digestive tract; Z90.89 Acquired absence of other organs; Z90.710 Acquired absence of both cervix and uterus; Z87.81 Personal history of (healed) traumatic fracture; Z79.82 Long term (current) use of aspirin
CPT/HCPCS: 36415; 74177; 80053; 81000; 83605; 83735; 85025; 85379; 86141; 96361; 96374

== ENCOUNTER → 2017-10-02 | Outpatient (CLI) | payer MEDICARE ==
[~2017-10-02] MED LIST changes: +MELO15TA39 PO; +PRD20T PO
--- NOTE | 2017-10-02 11:28 | Diagnostic Imaging Report ---
INDICATION: Routine screening. COMPARISON: 10/02/2016 and 09/27/2015. TECHNIQUE: Screening digital mammography was performed bilaterally with a Computer Aided Detection (CAD) system. FINDINGS: Both breasts show moderate parenchymal heterogeneity and increased density, limiting the sensitivity of mammography. The parenchymal pattern appears to be stable. An area of parenchymal density and questionable architectural distortion in the upper and outer aspect of the right breast at mid depth appears stable when compared with mammograms dating back to 2010. The left breast is stable. There are benign calcifications bilaterally. No malignant appearing microcalcifications are seen. The axillae are unremarkable. IMPRESSION: No mammographic features suspicious for malignancy are identified. ACR BI-RADS Category 2: Benign findings. Result letter will be mailed to the patient. Note: At least 10% of breast cancer is not imaged by mammography. Dictated by: Dictated on workstation # [id number]
== END ==
LOC: RAD 09:20
PROVIDERS: ATTEND Nurse Practitioner Family
DX: Z12.31 Encounter for screening mammogram for malignant neoplasm of breast (principal)
CPT/HCPCS: 77067

== ENCOUNTER 2018-01-14 06:43 | Emergency (ER) | payer MEDICARE ==
[~2018-01-14] VITALS: Ht 154.9 cm; Wt 54.9 kg
--- OUTSIDE RECORDS SUMMARY | 2018-01-14 06:56 | XMS REPORT | Continuity of Care Document ---
Author Author [facility] Organization [facility] Address Unknown Phone Unavailable Allergies Active Description Code Type Severity Reaction Onset Reported/Identified Relationship to Patient Clinical Status Yes raloxifene [id number] Drug Allergy Unknown N/A 02/09/2008 Yes ciprofloxacin [id number] Drug Allergy Mild N/A 09/21/2015 Yes gabapentin [id number] Drug Allergy Mild N/A 09/21/2015 Yes methylprednisolone [id number] Drug Allergy Mild N/A 09/21/2015 Yes promethazine [id number] Drug Allergy Mild N/A 09/21/2015 Yes tramadol [id number] Drug Allergy Mild N/A 09/21/2015 Yes Penicillins [id number] Drug Allergy Moderate RASH 11/25/2015 Medications There [...] 10/21/2015 KYRIE MARTINEZ MD Ot Z79.899 OTHER EPIDEMIOLOGY INVESTIGATOR (CURRENT) DRUG THERAPY 10/25/2015 HA LAWRENCE APRN [...] MILLAN MD Ot R11.10 12/30/2015 HA LAWRENCE RETAIL MANAGER Ot R10.2 PELVIC AND PERINEAL PAIN 12/30/2015 HA LAWRENCE RETAIL MANAGER Ot R10.31 RIGHT LOWER QUADRANT PAIN 12/30/2015 HA LAWRENCE APRN Ot R10.32 LEFT LOWER QUADRANT PAIN 01/04/2016 SAMI SORIA Ot K57.90 DVRTCLOS OF INTEST, PART UNSP, W/O PERF 01/05/2016 HA LAWRENCE RETAIL MANAGER Ot R10.2 PELVIC AND PERINEAL PAIN 01/05/2016 HA LAWRENCE RETAIL MANAGER Ot R10.31 RIGHT LOWER QUADRANT PAIN 01/05/2016 HA LAWRENCE RETAIL MANAGER Ot R10.32 LEFT LOWER QUADRANT PAIN 01/25/2016 [...] MAMMOGRAM FOR MALIGNANT NE 09/27/2016 HA LAWRENCE RETAIL MANAGER Ot R10.2 PELVIC AND PERINEAL PAIN 09/27/2016 HA LAWRENCE RETAIL MANAGER Ot R10.31 RIGHT LOWER QUADRANT PAIN 09/27/2016 HA LAWRENCE APRN Ot R10.32 LEFT LOWER QUADRANT PAIN 09/27/2016 SAMI SORIA Ot K57.90 DVRTCLOS OF INTEST, PART UNSP, W/O PERF 10/02/2016 HA LAWRENCE RETAIL MANAGER Ot Z12.31 ENCNTR SCREEN MAMMOGRAM FOR MALIGNANT NE 10/03/2016 HA LAWRENCE APRN Ot Z12.31 ENCNTR SCREEN MAMMOGRAM FOR MALIGNANT NE 10/30/2016 HA LAWRENCE RETAIL MANAGER Ot Z12.31 ENCNTR SCREEN MAMMOGRAM FOR MALIGNANT [...] M54.5 LOW BACK PAIN 11/22/2016 HA LAWRENCE RETAIL MANAGER Ot Z12.31 ENCNTR SCREEN MAMMOGRAM FOR MALIGNANT NE 11/22/2016 HA LAWRENCE RETAIL MANAGER Ot R10.2 PELVIC AND PERINEAL PAIN 11/22/2016 HA LAWRENCE RETAIL MANAGER Ot R10.31 RIGHT LOWER QUADRANT PAIN 11/22/2016 HA LAWRENCE RETAIL MANAGER Ot R10.32 LEFT LOWER QUADRANT PAIN 11/22/2016 SAMI SORIA Ot K57.90 DVRTCLOS OF INTEST, PART UNSP, W/O PERF 11/22/2016 HA LAWRENCE APRN Ot Z12.31 ENCNTR SCREEN MAMMOGRAM FOR MALIGNANT NE 11/22/2016 HA LAWRENCE RETAIL MANAGER Ot R10.31 RIGHT LOWER QUADRANT PAIN 11/22/2016 HA LAWRENCE RETAIL MANAGER Ot R31.9 HEMATURIA, UNSPECIFIED 12/13/2016 HA LAWRENCE RETAIL MANAGER Ot R10.31 RIGHT LOWER QUADRANT PAIN 12/13/2016 HA LAWRENCE RETAIL MANAGER Ot R31.9 HEMATURIA, UNSPECIFIED 12/24/2016 HA LAWRENCE RETAIL MANAGER Ot R10.31 RIGHT LOWER QUADRANT PAIN 12/24/2016 HA LAWRENCE RETAIL MANAGER Ot R31.9 HEMATURIA, UNSPECIFIED 09/29/2017 EMERSON STEELE MD J Ot E03.9 HYPOTHYROIDISM, UNSPECIFIED 09/29/2017 FARHAT STEELE MDUS J Ot E78.00 PURE HYPERCHOLESTEROLEMIA, UNSPECIFIED 09/29/2017 FARHAT STEELE MDUS J Ot F32.9 MAJOR DEPRESSIVE DISORDER, SINGLE EPISOD 09/29/2017 EMERSON STEELE MD J Ot I10 ESSENTIAL (PRIMARY) HYPERTENSION 09/29/2017 EMERSON STEELE MD J Ot K21.9 GASTRO-ESOPHAGEAL REFLUX DISEASE WITHOUT 09/29/2017 EMERSON STEELE MD J Ot M54.16 RADICULOPATHY, LUMBAR REGION 09/29/2017 EMERSON STEELE MD J Ot R10.31 RIGHT LOWER QUADRANT PAIN 09/29/2017 EMERSON STEELE MD Ot Z79.82 EPIDEMIOLOGY INVESTIGATOR (CURRENT) USE OF ASPIRIN 09/29/2017 EMERSON STEELE MD Ot Z87.81 PERSONAL HISTORY OF (HEALED) TRAUMATIC F 09/29/2017 EMERSON STEELE MD Ot Z90.49 ACQUIRED ABSENCE OF OTHER SPECIFIED PART 09/29/2017 EMERSON STEELE MD J Ot Z90.710 ACQUIRED ABSENCE OF BOTH CERVIX AND UTER 09/29/2017 EMERSON STEELE MD J Ot Z90.89 ACQUIRED ABSENCE OF OTHER ORGANS 10/01/2017 EMERSON STEELE MD J Ot E03.9 HYPOTHYROIDISM, UNSPECIFIED 10/01/2017 EMERSON STEELE MD J Ot E78.00 PURE HYPERCHOLESTEROLEMIA, UNSPECIFIED 10/01/2017 EMERSON STEELE MD J Ot F32.9 MAJOR DEPRESSIVE DISORDER, SINGLE EPISOD 10/01/2017 FARHAT STEELE MDUS J Ot I10 ESSENTIAL (PRIMARY) HYPERTENSION 10/01/2017 EMERSON STEELE MD J Ot K21.9 GASTRO-ESOPHAGEAL REFLUX DISEASE WITHOUT 10/01/2017 FARHAT STEELE MDUS J Ot M54.16 RADICULOPATHY, LUMBAR REGION 10/01/2017 EMERSON STEELE MD Ot R10.31 RIGHT LOWER QUADRANT PAIN 10/01/2017 EMERSON STEELE MD Ot Z79.82 EPIDEMIOLOGY INVESTIGATOR (CURRENT) USE OF ASPIRIN 10/01/2017 EMERSON STEELE MD Ot Z87.81 PERSONAL HISTORY OF (HEALED) TRAUMATIC F 10/01/2017 EMERSON STEELE MD Ot Z90.49 ACQUIRED ABSENCE OF OTHER SPECIFIED PART 10/01/2017 EMERSON STEELE MD Ot Z90.710 ACQUIRED ABSENCE OF BOTH CERVIX AND UTER 10/01/2017 EMERSON STEELE MD Ot Z90.89 ACQUIRED ABSENCE OF OTHER ORGANS 10/02/2017 HA LAWRENCE APRN Ot Z12.31 ENCNTR SCREEN MAMMOGRAM FOR MALIGNANT NE 10/03/2017 HA LAWRENCE APRN Ot Z12.31 ENCNTR SCREEN MAMMOGRAM FOR MALIGNANT NE 10/23/2017 HA LAWRENCE APRN Ot Z12.31 ENCNTR SCREEN MAMMOGRAM FOR MALIGNANT NE Procedures There is no data. Results Test Result Range Complete blood count (CBC) with automated white blood cell (WBC) differential - 09/28/17 00:04 Blood leukocytes automated count (number/volume) 5.8 10*3/uL 4.3-11.0 Blood erythrocytes automated count (number/volume) 3.91 10*6/uL 4.35-5.85 Venous blood hemoglobin measurement (mass/volume) 11.8 g/dL 11.5-16.0 Blood hematocrit (volume fraction) 35 % 35-52 Automated erythrocyte mean corpuscular volume 89 [foz_us] 80-99 Automated erythrocyte mean corpuscular hemoglobin (mass per erythrocyte) 30 pg 25-34 Automated erythrocyte mean corpuscular hemoglobin concentration measurement ( mass/volume) 34 g/dL 32-36 Automated erythrocyte distribution width ratio 12.8 % 10.0-14.5 Automated blood platelet count (count/volume) 256 10*3/uL 130-400 Automated blood platelet mean volume measurement 10.4 [foz_us] 7.4-10.4 Automated blood neutrophils/100 leukocytes 51 % 42-75 Automated blood lymphocytes/100 leukocytes 31 % 12-44 Blood monocytes/100 leukocytes 13 % 0-12 Automated blood eosinophils/100 leukocytes 3 % 0-10 Automated blood basophils/100 leukocytes 1 % 0-10 Blood neutrophils automated count (number/volume) 3.0 10*3 1.8-7.8 Blood lymphocytes automated count (number/volume) 1.8 10*3 1.0-4.0 Blood monocytes automated count (number/volume) 0.8 10*3 0.0-1.0 Automated eosinophil count 0.2 10*3/uL 0.0-0.3 Automated blood basophil count (count/volume) 0.1 10*3/uL 0.0-0.1 Complete urinalysis with reflex to culture - 09/28/17 00:04 Urine color determination YELLOW NRG Urine clarity determination CLEAR NRG Urine pH measurement by test strip 7 5-9 Specific gravity of urine by test strip 1.010 1.016- 1.022 Urine protein assay by test strip, semi-quantitative NEGATIVE NEGATIVE Urine glucose detection by automated test strip NEGATIVE NEGATIVE Erythrocytes detection in urine sediment by light microscopy NEGATIVE NEGATIVE Urine ketones detection by automated test strip NEGATIVE NEGATIVE Urine nitrite detection by test strip NEGATIVE NEGATIVE Urine total bilirubin detection by test strip NEGATIVE NEGATIVE Urine urobilinogen measurement by automated test strip (mass/volume) NORMAL NORMAL Urine leukocyte esterase detection by dipstick NEGATIVE NEGATIVE Automated urine sediment erythrocyte count by microscopy (number/high power field) NONE NRG Automated urine sediment leukocyte count by microscopy (number/high power field ) RARE NRG Bacteria detection in urine sediment by light microscopy TRACE NRG Squamous epithelial cells detection in urine sediment by light microscopy 2-5 NRG Crystals detection in urine sediment by light microscopy PRESENT NRG Casts detection in urine sediment by light microscopy NONE NRG Mucus detection in urine sediment by light microscopy NEGATIVE NRG Complete urinalysis with reflex to culture NO NRG Amorphous sediment detection in urine sediment by light microscopy FEW RINA PHOSPHATE NRG Fibrin D-dimer FEU measurement in platelet poor plasma (mass/volume) - 00:04 Fibrin D-dimer FEU measurement in platelet poor plasma (mass/volume) 0.89 ug/mL 0.00-0.49 Comprehensive metabolic panel - 09/28/17 00:04 Serum or plasma sodium measurement (moles/volume) 143 mmol/L 135-145 Serum or plasma potassium measurement (moles/volume) 3.6 mmol/L 3.6-5.0 Serum or plasma chloride measurement (moles/volume) 108 mmol/L 98-107 Carbon dioxide 23 mmol/L 21-32 Serum or plasma anion gap determination (moles/volume) 12 mmol/L 5-14 Serum or plasma urea nitrogen measurement (mass/volume) 14 mg/dL 7-18 Serum or plasma creatinine measurement (mass/volume) 0.89 mg/dL 0.60-1.30 Serum or plasma urea nitrogen/creatinine mass ratio 16 NRG Serum or plasma creatinine measurement with calculation of estimated glomerular filtration rate 60 NRG Serum or plasma glucose measurement (mass/volume) 104 mg/dL 70-105 Serum or plasma calcium measurement (mass/volume) 9.7 mg/dL 8.5-10.1 Serum or plasma total bilirubin measurement (mass/volume) 0.3 mg/dL 0.1-1.0 Serum or plasma alkaline phosphatase measurement (enzymatic activity/volume) 80 U/L 40-136 Serum or plasma aspartate aminotransferase measurement (enzymatic activity/ volume) 20 U/L 5-34 Serum or plasma alanine aminotransferase measurement (enzymatic activity/volume ) 19 U/L 0-55 Serum or plasma protein measurement (mass/volume) 6.7 g/dL 6.4-8.2 Serum or plasma albumin measurement (mass/volume) 3.9 g/dL 3.2-4.5 Magnesium - 09/28/17 00:04 Magnesium 2.0 mg/dL 1.8-2.4 Serum or plasma C reactive protein measurement (mass/volume) - 09/28/17 00:04 Serum or plasma C reactive protein measurement (mass/volume) 0.05 mg /dL 0.00-0.50 Blood lactic acid measurement (moles/volume) - 09/28/17 00:15 Blood lactic acid measurement (moles/volume) 0.69 mmol/L 0.50-2.00 Encounters ACCT No. Visit Date/Time Discharge Status Pt. Type Provider Facility Loc./Unit Complaint [id number] 10/02/2017 09:20:00 10/02/2017 23:59:59 CLS Outpatient HA LAWRENCE APRN [facility] RAD SCREENING [id number] 09/28/2017 23:19:00 09/29/2017 02:34:00 DIS Emergency EMERSON STEELE MD [facility] ER R SIDE PAIN [id number] 11/22/2016 15:21:00 11/22/2016 23:59:59 CLS Outpatient HOWARDBOBJEFF Dupree APRN [facility] RAD LOW ABDOMINAL PAIN [id number] 10/02/2016 08:58:00 10/02/2016 23:59:59 CLS Outpatient HOWARDBOBJEFF Dupree RETAIL MANAGER [facility] RAD SCREENING [id number] 01/03/2016 14:10:00 01/03/2016 23:59:59 CLS Outpatient SAMI SORIA [facility] RAD LOWER ABD PAIN,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 [id number] 11/25/2015 05:48:00 11/25/2015 09:14:00 DIS Emergency ANDRIA MILLAN MD [facility] ER ABDOMINAL PAIN,VOMITING [id number] 11/18/2015 02:35:00 11/18/2015 04:43:00 DIS Emergency JA SANCHEZ DO [facility] ER BURNING THRU CHEST,LEGS NUMB,NAUSEA [id number] 11/17/2015 15:59:00 11/17/2015 23:59:59 CLS Outpatient HA LAWRENCE APRN [facility] RAD ABD PAIN [id number] 10/21/2015 11:34:00 10/21/2015 12:35:00 DIS Outpatient KYRIE MARTINEZ MD [facility] CARD DISC DISORDER SACROCOCCYGEAL DISORDER [id number] 09/27/2015 09:20:00 09/27/2015 23:59:59 CLS Outpatient HA LAWRENCE RETAIL MANAGER [facility] RAD SCREENING [id number] 09/21/2015 06:41:00 09/21/2015 09:23:00 DIS Emergency LAXMI MÁRQUEZ DO [facility] ER ABD PAIN [id number] 09/15/2015 09:33:00 09/15/2015 23:59:59 CLS Outpatient KYRIE MARTINEZ MD [facility] RAD LOW PAIN BACK [id number] 02/11/2014 08:02:00 02/11/2014 23:59:59 CLS Outpatient EVELINA MCDANIEL [facility] RAD SCREENING [id number] 08/20/2013 07:40:00 08/20/2013 13:55:00 DIS Outpatient LINDA FOUNTAIN, VICTORINO Azar [facility] RAD CERVICAL RADICULOPATHY [id number] 11/16/2014 12:12:00 Document Registration [id number] 12/19/2012 09:12:00 Document Registration [id number] 08/09/2011 09:45:00 Document Registration [id number] 01/31/2011 06:55:00 Document Registration [id number] 05/01/2010 07:17:00 Document Registration 0000 04/12/2017 08:40:06 04/12/2017 23:59:59 CLS Outpatient Fela Nj
[2018-01-14] MEDS ORDERED: fentaNYL INJECTION 100 MCG/2 ML AMP IVP STA ×2 (07:08→08:06)
[2018-01-14] MEDS ORDERED: ASPIRIN 81 MG CHEW (CHILDREN'S ASA) PO STA (07:08)
[2018-01-14] MEDS ORDERED: ONDANSETRON 4 MG/2 ML (SDV) Z0FRAN IVP ONE (07:15)
[2018-01-14 07:39] LABS: BASOPHILS # (AUTO) 0.1 10^3/uL (0.0-0.1); BASOPHILS % (AUTO) 1 % (0-10); EOSINOPHILS # (AUTO) 0.1 10^3/uL (0.0-0.3); EOSINOPHILS % (AUTO) 2 % (0-10); HEMATOCRIT 36 % (35-52); LYMPHOCYTES # (AUTO) 1.2 X 10^3 (1.0-4.0); LYMPHOCYTES % (AUTO) 20 % (12-44); MEAN CORPUSCULAR HEMOGLOBIN 30 PG (25-34); MEAN CORPUSCULAR HGB CONC 34 G/DL (32-36); MEAN CORPUSCULAR VOLUME 88 FL (80-99); MEAN PLATELET VOLUME 9.5 FL (7.4-10.4); MONOCYTES # (AUTO) 0.6 X 10^3 (0.0-1.0); MONOCYTES % (AUTO) 11 % (0-12); NEUTROPHILS # (AUTO) 3.9 X 10^3 (1.8-7.8); NEUTROPHILS % (AUTO) 67 % (42-75); PLATELET COUNT 281 10^3/uL (130-400); RED BLOOD COUNT 4.05 10^6/uL (4.35-5.85); RED CELL DISTRIBUTION WIDTH 13.9 % (10.0-14.5); WHITE BLOOD COUNT 5.8 10^3/uL (4.3-11.0)
[2018-01-14 07:55] LABS: ALANINE AMINOTRANSFERASE 11 U/L (0-55); ALKALINE PHOSPHATASE 67 U/L (40-136); BILIRUBIN,TOTAL 0.8 MG/DL (0.1-1.0); BUN/CREATININE RATIO 19; CALCIUM 10.3 MG/DL (8.5-10.1); CARBON DIOXIDE 27 MMOL/L (21-32); CHLORIDE 107 MMOL/L (98-107); CREATININE SERUM 0.91 MG/DL (0.60-1.30); GFR ESTIMATED 59; GLUCOSE 109 MG/DL (70-105); POTASSIUM 4.3 MMOL/L (3.6-5.0); SODIUM 141 MMOL/L (135-145); TOTAL PROTEIN 6.6 GM/DL (6.4-8.2)
--- NOTE | 2018-01-14 08:14 | ED General ---
General Chief Complaint: General Problems/Pain Stated Complaint: ARTHRITIS PAIN Nursing Triage Note: pt states she was taken off her arthritis meds approx 2 weeks ago. c/o severe pain for the last couple of days. c/o L arm, shoulder, back pain. c/o dizziness. Nursing Sepsis Screen: No Definite Risk Source of Information: Patient Exam Limitations: No Limitations History of Present Illness Date Seen by Provider: January 14, 2018 Time Seen by Provider: 07:05 Initial Comments Here with report of pain from the left neck down to the left shoulder and left arm as well as some upper back and upper anterior chest pain. She has been taken off her arthritis meds a couple weeks ago and has had problems since. She restarted it yesterday but that has not helped her pain. 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 Denies nausea or vomiting. Denies fever or chills. Timing/Duration: 4-5 Days Severity: Moderate Associated Systoms: No Cough, No Fever/Chills, No Nausea/Vomiting, No Shortness of Air, No Weakness Allergies and Home Medications Allergies Coded Allergies: Penicillins (Verified Allergy, Intermediate, RASH, 11/25/15) ciprofloxacin (Verified Allergy, Mild, 09/21/15) gabapentin (Verified Allergy, Mild, 09/21/15) methylprednisolone (Verified Allergy, Mild, 09/21/15) promethazine (Verified Allergy, Mild, 09/21/15) raloxifene (Verified Allergy, Unknown, 02/09/08) sulfamethoxazole (Verified Allergy, Unknown, 01/14/18) prednisone (Unverified Adverse Reaction, Unknown, 01/14/18) pt states it causes dizziness tramadol (Unverified Adverse Reaction, Unknown, 01/14/18) pt states it makes hair fall out Home Medications Alprazolam 0.25 Mg Tablet, 0.25 MG PO ONCE PRN for INSOMNIA Prescribed by: ANDRIA MILLAN on 11/25/15 0844 Alprazolam 0.25 Mg Tablet, 0.25 MG PO HS Prescribed by: ANDRIA MILLAN on 11/25/15 0846 Meloxicam 15 Mg Tablet, 15 MG PO DAILY Prescribed by: EMERSON STEELE on 09/29/17 0225 Ondansetron 4 Mg Tab.rapdis, 4 MG PO Q4H Prescribed by: LAXMI MÁRQUEZ on 09/21/15 0848 Prednisone 20 Mg Tab, 20 MG PO BID Prescribed by: EMERSON STEELE on 09/29/17 0225 Patient Home Medication List Home Medication List Reviewed: Yes Review of Systems Constitutional: see HPI; No chills, No fever EENTM: no symptoms reported Respiratory: no symptoms reported Cardiovascular: see HPI; No chest pain, No edema Gastrointestinal: no symptoms reported Genitourinary: no symptoms reported Musculoskeletal: see HPI, joint pain, muscle pain Skin: no symptoms reported Psychiatric/Neurological: No Symptoms Reported All Other Systems Reviewed Negative Unless Noted: Yes Past Aqtsvpu-Fbtgct-Rniihq Hx Past Med/Social Hx: Reviewed Nursing Past Med/Soc Hx Patient Social History Alcohol Use: Denies Use Recreational Drug Use: No 2nd Hand Smoke Exposure: No Recent Foreign Travel: No Contact w/Someone Who Travel: No Recent Infectious Disease Expo: No Recent Hopitalizations: Yes Physical Abuse: No Sexual Abuse: No Immunizations Up To Date Tetanus Booster (TDap): Unknown Past Medical History Surgeries: Yes Appendectomy, Bladder Surgery, Breast, Eye Surgery, Hysterectomy, Oophorectomy, Orthopedic, Rectal, Tonsillectomy Respiratory: No Cardiac: Yes High Cholesterol, Hypertension Neurological: No Reproductive Disorders: No [employer] History: Hysterectomy Gastrointestinal: Yes Gastroesophageal Reflux, Diverticulosis Musculoskeletal: Yes Osteoporosis, Arthritis, Chronic Back Pain, Fractures Endocrine: Yes Hypothyroidsim Cancer: No Psychosocial: Yes Depression Nursing Suicide Risk Score: 0 Integumentary: No Blood Disorders: No Family Medical History Reviewed Nursing Family Hx No Pertinent Family Hx Physical Exam Vital Signs Vital Signs - First Documented 01/14/18 01/14/18 06:53 10:21 Temp 98.3 Pulse 100 Resp 24 B/P (MAP) 153/99 (117) Pulse Ox 98 O2 Delivery Nasal Cannula O2 Flow Rate 2.00 Capillary Refill : Less Than 3 Seconds General Appearance: No Apparent Distress, WD/WN HEENT: PERRL/EOMI, Pharynx Normal Neck: Non Tender, Supple Respiratory: Lungs Clear, Normal Breath Sounds Cardiovascular: Regular Rate, Rhythm, No Murmur Gastrointestinal: Non Tender, Soft Back: Normal Inspection, No CVA Tenderness, No Vertebral Tenderness Extremity: Normal Range of Motion, Non Tender, Other Neurologic/Psychiatric: Alert, Oriented x3 Skin: Normal Color, Warm/Dry Progress/Results/Core Measures Suspected Sepsis Recent Fever Within 48 Hours: No Infection Criteria Present: None New/Unexplained Altered Menta: No Sepsis Screen: No Definite Risk SIRS Temperature:98.3 Pulse: 100 Respiratory Rate: 24 Laboratory Tests 01/14/18 07:26: White Blood Count 5.8 Blood Pressure 153 /99 Mean: 117 Laboratory Tests 01/14/18 07:26: Creatinine 0.91, Platelet Count 281, Total Bilirubin 0.8 Results/Orders Lab Results Laboratory Tests Test 01/14/18 07:26 Range/Units White Blood Count 5.8 4.3-11.0 10^3/uL Red Blood Count 4.05 L 4.35-5.85 10^6/uL Hemoglobin 12.0 11.5-16.0 G/DL Hematocrit 36 35-52 % Mean Corpuscular Volume 88 80-99 FL Mean Corpuscular Hemoglobin 30 25-34 PG Mean Corpuscular Hemoglobin Concent 34 32-36 G/DL Red Cell Distribution Width 13.9 10.0-14.5 % Platelet Count 281 130-400 10^3/uL Mean Platelet Volume 9.5 7.4-10.4 FL Neutrophils (%) (Auto) 67 42-75 % Lymphocytes (%) (Auto) 20 12-44 % Monocytes (%) (Auto) 11 0-12 % Eosinophils (%) (Auto) 2 0-10 % Basophils (%) (Auto) 1 0-10 % Neutrophils # (Auto) 3.9 1.8-7.8 X 10^3 Lymphocytes # (Auto) 1.2 1.0-4.0 X 10^3 Monocytes # (Auto) 0.6 0.0-1.0 X 10^3 Eosinophils # (Auto) 0.1 0.0-0.3 10^3/uL Basophils # (Auto) 0.1 0.0-0.1 10^3/uL Sodium Level 141 135-145 MMOL/L Potassium Level 4.3 3.6-5.0 MMOL/L Chloride Level 107 98-107 MMOL/L Carbon Dioxide Level 27 21-32 MMOL/L Anion Gap 7 5-14 MMOL/L Blood Urea Nitrogen 17 7-18 MG/DL Creatinine 0.91 0.60-1.30 MG/DL Estimat Glomerular Filtration Rate 59 BUN/Creatinine Ratio 19 Glucose Level 109 H 70-105 MG/DL Calcium Level 10.3 H 8.5-10.1 MG/DL Total Bilirubin 0.8 0.1-1.0 MG/DL Aspartate Amino Transf (AST/SGOT) 15 5-34 U/L Alanine Aminotransferase (ALT/SGPT) 11 0-55 U/L Alkaline Phosphatase 67 40-136 U/L Myoglobin 57.0 10.0-92.0 NG/ML Troponin I < 0.30 <0.30 NG/ML Total Protein 6.6 6.4-8.2 GM/DL Albumin 4.0 3.2-4.5 GM/DL My Orders Orders - BURAK GARCIA MD Cbc With Automated Diff (01/14/18 07:08) Comprehensive Metabolic Panel (01/14/18 07:08) Troponin I (01/14/18 07:08) Myoglobin Serum (01/14/18 07:08) Ekg Tracing (01/14/18 07:08) Ondansetron Injection (Zofran Injectio (01/14/18 07:15) Aspirin Chewable Tablet (Baby Aspirin Ch (01/14/18 07:08) Fentanyl Injection (Sublimaze Injection (01/14/18 07:08) Fentanyl Injection (Sublimaze Injection (01/14/18 08:06) Ct Cervical Spine Wo (01/14/18 08:52) Dexamethasone Injection (Decadron Inject (01/14/18 09:00) Hydromorphone Injection (Dilaudid Inject (01/14/18 10:04) O2 (01/14/18 10:36) Medications Given in ED Current Medications Medications Dose Ordered Sig/Kylee Route Start Time Stop Time Status Last Admin Dose Admin Dexamethasone Sodium Phosphate 10 mg ONCE ONCE IV 01/14/18 09:00 01/14/18 09:01 DC 01/14/18 09:09 10 MG Ondansetron HCl 4 mg ONCE ONCE IVP 01/14/18 07:15 01/14/18 07:16 DC 01/14/18 07:35 4 MG Vital Signs/I&O 01/14/18 01/14/18 06:53 10:21 Temp 98.3 Pulse 100 Resp 24 B/P (MAP) 153/99 (117) Pulse Ox 98 O2 Delivery Nasal Cannula O2 Flow Rate 2.00 Capillary Refill : Less Than 3 Seconds Blood Pressure Mean: 117 Progress Note : Progress Note Seen and evaluated. IV, labs and EKG ordered. We will check EKG and labs due to concerns related to chest pain equivalent. ASA 324 mg by mouth given. Normal saline 1 L bolus due to tachycardia and report of not been able to eat or drink well due to pain. Fentanyl 25 g IV ordered. 0810: Repeat fentanyl 50 g IV as pain not controlled. Monitor patient. CT C-spine ordered as patient continued. Dilaudid 0.5 mg IV. Monitor patient. 1210: CT complete and pain is much better controlled. She did have a little while when she needed some supplemental oxygen when she was getting sleepy but this has completely resolved and she is much better. She did receive Decadron 10 mg IV. Discharged home with return precautions. Patient verbalize understanding instructions and agreement with plan. ECG Initial ECG Impression Date: January 14, 2018 Initial ECG Impression Time: 07:07 Initial ECG Rate: 90 Initial ECG Rhythm: Normal Sinus Comment Sinus with left axis deviation. Similar to previous in morphology but rate increased by 30 over previous EKGs. No evidence of ST elevation [place]. Compared to previous of 18 November 2015. Interpreted by me. Diagnostic Imaging Diagonstic Imaging: CT Plain Films/CT/US/NM/MRI: c-spine Comments NAME: ROSHNI BARRIENTOS Leia [facility] REC#: [id number] PT STATUS: REG ER : 1935 PHYSICIAN: BURAK GARCIA MD ADMIT DATE: 01/14/18/ER Signed Date of Exam: 01/14/18 CT CERVICAL SPINE WO PROCEDURE: CT cervical spine without contrast. TECHNIQUE: Multiple contiguous axial images were obtained through the cervical spine without the use of intravenous contrast. Sagittal and coronal reformations were then performed. INDICATION: Neck pain. COMPARISON: Cervical spine CT myelogram 08/20/2013. FINDINGS: Grade 1 retrolisthesis of C5 on C6 is stable. Alignment is otherwise unremarkable. There are moderate to advanced diffuse degenerative endplate changes, most marked at C5-C7. Vertebral body heights preserved. No fractures. No evidence of high-grade spinal canal narrowing on this noncontrast exam. There is diffuse mild neural foraminal narrowing. There is more advanced neural foraminal narrowing on the left at C4-C5 bilateral neural foraminal narrowing at C6-C7. Moderate atherosclerotic calcifications including the carotid bifurcations. The visualized paravertebral soft tissues are otherwise unremarkable. IMPRESSION: 1. No acute CT findings in the cervical spine. 2. Interval progression of spondylotic changes with advanced degenerative endplate changes at C5-C7. 3. Diffuse mild neural foraminal narrowing. This is more advanced on the left at C4-C5 and moderate bilaterally at C6-C7. Dictated by: Dictated on workstation # [id number] Dict: 01/14/18 0935 Trans: 01/14/18 1155 Interpreted by: CHEYANNE ALLRED MD Electronically signed by: CHEYANNE ALLRED MD 01/14/18 1155 Departure Impression Primary Impression: DJD (degenerative joint disease) Qualified Codes: M15.0 - Primary generalized (osteo)arthritis Additional Impressions: Neck pain on left side Left shoulder pain Qualified Codes: M25.512 - Pain in left shoulder; G89.29 - Other chronic pain Disposition: 01 HOME, SELF-CARE Condition: Improved Departure-Patient Inst. Decision time for Depature: 12:18 Referrals: CRISTINA ELLISON MD (PCP/Family) Primary Care Physician Patient Instructions: Degenerative Disc Disease (DC), Osteoarthritis (DC) Add. Discharge Instructions: All discharge instructions reviewed with patient and/or family. Voiced understanding. Take medications as directed. You may take one half or 1 tablet of the prescribed pain medicine. If you are taking the prescribed medicine, only take one of your extra strength arthritis pain pills as they both have acetaminophen in then. If you're not taking the prescribed pain medicine, you may take 2 of the extra strength arthritis pain pills every 8 hours. Follow-up with your doctor as soon as possible. Call his office for appointment and/or instructions. Return for worse pain, fever, vomiting, weakness, breathing problems or other concerns as needed. The prescribed pain medicine may make you drowsy or dizzy so you should be careful when transitioning from laying to sitting to standing. You should use your walker for assistance. Scripts Hydrocodone Bit/Acetaminophen (Hydrocodone/Acetaminophen 5/325mg Tablet) 1 Tab Tab 1 EACH PO Q6H PRN for PAIN-MILD TO MODERATE, #15 TAB 0 Refills Prov: BURAK GARCIA MD 01/14/18 Copy Copies To 1: CRISTINA ELLISON MD, TIMOTHY D MD January 14, 2018 08:14
[2018-01-14] MEDS ORDERED: DEXAMETHASONE 10 MG/ML (DECADRON) 1 ML VIAL IV ONE (09:00)
--- NOTE | 2018-01-14 09:53 | Diagnostic Imaging Report ---
PROCEDURE: CT cervical spine without contrast. TECHNIQUE: Multiple contiguous axial images were obtained through the cervical spine without the use of intravenous contrast. Sagittal and coronal reformations were then performed. INDICATION: Neck pain. COMPARISON: Cervical spine CT myelogram 08/20/2013. FINDINGS: Grade 1 retrolisthesis of C5 on C6 is stable. Alignment is otherwise unremarkable. There are moderate to advanced diffuse degenerative endplate changes, most marked at C5-C7. Vertebral body heights preserved. No fractures. No evidence of high-grade spinal canal narrowing on this noncontrast exam. There is diffuse mild neural foraminal narrowing. There is more advanced neural foraminal narrowing on the left at C4-C5 bilateral neural foraminal narrowing at C6-C7. Moderate atherosclerotic calcifications including the carotid bifurcations. The visualized paravertebral soft tissues are otherwise unremarkable. IMPRESSION: 1. No acute CT findings in the cervical spine. 2. Interval progression of spondylotic changes with advanced degenerative endplate changes at C5-C7. 3. Diffuse mild neural foraminal narrowing. This is more advanced on the left at C4-C5 and moderate bilaterally at C6-C7. Dictated by: Dictated on workstation # [id number]
[2018-01-14] MEDS ORDERED: HYDROmorphone 2 MG/ML VIAL (DILAUDID) IVP STA (10:04)
[2018-01-14] MEDS ORDERED: ACHD5005 PO (12:21)
[2018-01-14 12:29] VITALS: BP 148/95
== END 2018-01-14 12:29 | disposition home or self-care (01) ==
LOC: EDUNIT# 06:43 → ER 06:45
DX: M50.323 Other cervical disc degeneration at C6-C7 level (principal); M25.512 Pain in left shoulder; E78.00 Pure hypercholesterolemia, unspecified; I10 Essential (primary) hypertension; K21.9 Gastro-esophageal reflux disease without esophagitis; E03.9 Hypothyroidism, unspecified; F32.9 Major depressive disorder, single episode, unspecified; M81.0 Age-related osteoporosis without current pathological fracture; Z87.19 Personal history of other diseases of the digestive system; Z88.0 Allergy status to penicillin; Z88.1 Allergy status to other antibiotic agents; Z88.8 Allergy status to other drugs, medicaments and biological substances; Z88.2 Allergy status to sulfonamides; Z88.6 Allergy status to analgesic agent; Z79.52 Long term (current) use of systemic steroids; Z90.710 Acquired absence of both cervix and uterus; Z90.89 Acquired absence of other organs; Z90.49 Acquired absence of other specified parts of digestive tract
CPT/HCPCS: 36415; 72125; 80053; 83874; 84484; 85025; 93005; 96374; 96375; 96376

== ENCOUNTER 2018-06-05 08:12 | Outpatient (RCR) | payer MEDICARE ==
[~2018-06-05 08:12] MED LIST changes: +ACHD5005 PO
== END 2018-06-09 | disposition home or self-care (01) ==
PROVIDERS: ATTEND Physician Assistant Medical
DX: Z47.89 Encounter for other orthopedic aftercare (principal); Z98.890 Other specified postprocedural states

== ENCOUNTER 2018-07-15 09:11 | Outpatient (RCR) | payer MEDICARE | END 2018-07-15 09:28 | disposition home or self-care (01) | PROVIDERS: ATTEND Physician Assistant Medical | DX: Z47.89 Encounter for other orthopedic aftercare (principal); Z98.890 Other specified postprocedural states ==

== ENCOUNTER → 2018-10-07 | Outpatient (CLI) | payer MEDICARE ==
--- NOTE | 2018-10-07 19:24 | Diagnostic Imaging Report ---
EXAMINATION: Digital mammogram bilateral screening with 3D tomosynthesis. The current study was also evaluated with a Computer Aided Detection (CAD) system. INDICATION: Screening. This study was compared to the prior exams of 10/02/2017, 10/02/2016, and 09/27/2015. At this time, there are no current complaints. FINDINGS: The fibroglandular tissue in both breasts is heterogeneously dense. This does limit the sensitivity of this exam. Overall, there does not appear to have been any significant change when compared to the prior study. No primary or secondary sign of malignancy is noted. 3D tomographic images fail to show any sign of malignancy. The scar formation in the upper-outer aspect of the right breast seen previously is again evident and no different. IMPRESSION: There is no radiographic evidence for malignancy. ACR BI-RADS Category 1: Negative. Result letter will be mailed to the patient. Note: At least 10% of breast cancer is not imaged by mammography. Dictated by: Dictated on workstation # [id number]
== END ==
LOC: RAD 08:29
PROVIDERS: ATTEND Family Medicine
DX: Z12.31 Encounter for screening mammogram for malignant neoplasm of breast (principal)
CPT/HCPCS: 77067

== ENCOUNTER 2018-12-04 04:52 | Emergency (ER) | payer MEDICARE ==
[~2018-12-04] VITALS: Ht 160 cm; Wt 55.3 kg
[2018-12-04] MEDS ORDERED: NS IV 500 ML 500 ML IV ONE (05:05)
[2018-12-04 05:13] LABS: BASOPHILS # (AUTO) 0.1 10^3/uL (0.0-0.1); BASOPHILS % (AUTO) 1 % (0-10); EOSINOPHILS # (AUTO) 0.3 10^3/uL (0.0-0.3); EOSINOPHILS % (AUTO) 4 % (0-10); HEMATOCRIT 37 % (35-52); HEMOGLOBIN 12.1 G/DL (11.5-16.0); LYMPHOCYTES # (AUTO) 1.6 X 10^3 (1.0-4.0); LYMPHOCYTES % (AUTO) 23 % (12-44); MEAN CORPUSCULAR HEMOGLOBIN 28 PG (25-34); MEAN CORPUSCULAR HGB CONC 33 G/DL (32-36); MEAN CORPUSCULAR VOLUME 86 FL (80-99); MEAN PLATELET VOLUME 10.2 FL (7.4-10.4); MONOCYTES # (AUTO) 0.9 X 10^3 (0.0-1.0); MONOCYTES % (AUTO) 13 % (0-12); NEUTROPHILS % (AUTO) 59 % (42-75); PLATELET COUNT 291 10^3/uL (130-400); RED CELL DISTRIBUTION WIDTH 14.2 % (10.0-14.5); WHITE BLOOD COUNT 6.9 10^3/uL (4.3-11.0)
[2018-12-04] MEDS ORDERED: MECLIZINE 25 MG (ANTIVERT) TAB ONE (05:20)
[2018-12-04 05:33] LABS: ALBUMIN 4.2 GM/DL (3.2-4.5); BILIRUBIN,TOTAL 0.6 MG/DL (0.1-1.0); CALCIUM 10.7 MG/DL (8.5-10.1); CREATININE SERUM 0.93 MG/DL (0.60-1.30); MAGNESIUM 2.2 MG/DL (1.8-2.4); POTASSIUM 4.2 MMOL/L (3.6-5.0); TOTAL PROTEIN 7.2 GM/DL (6.4-8.2)
[2018-12-04 05:36] LABS: BILIRUBIN,URINE NEGATIVE (NEGATIVE); CLARITY,URINE SLIGHTLY CLOUDY; COLOR,URINE YELLOW; GLUCOSE, URINE (UA) NEGATIVE (NEGATIVE); KETONES,URINE NEGATIVE (NEGATIVE); LEUKOCYTE ESTERASE ,URINE NEGATIVE (NEGATIVE); NITRITE,URINE POSITIVE (NEGATIVE); PH,URINE 7 (5-9); PROTEIN,URINE NEGATIVE (NEGATIVE); UROBILINOGEN,URINE NORMAL (NORMAL)
--- NOTE | 2018-12-04 05:37 | ED Fall/Injury ---
General Chief Complaint: Dizziness/Syncope Stated Complaint: FALL Nursing Triage Note: PT TO ROOM #3 [facility]IA [facility] C[facility] FROM HOME WITH C/O LH/DIZZINESS. 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 PT REPORTS SHE FELL X2 DAYS AGO AND HAS BEEN EXPERIENCING DIZZINESS INTERMITTENTLY SINCE. REPORTS PAIN TO LT CHEEK BONE UPON LIGHT PALPATION. DENIES HEAD, NECK, OR BACK PAIN. PT NON TENDER UPON LIGHT PALPATION TO C-SPINE BY PROVIDER. REPORTS URINARY URGENCY. Source: patient Exam Limitations: no limitations History of Present Illness Date Seen by Provider: Dec 04, 2018 Time Seen by Provider: 05:01 Initial Comments Here with report of a few falls over the last couple days. This morning woke up with pain to the left cheek bone and dizziness. The dizziness has increased today. Denies nausea or vomiting. Denies pain to the neck or other injury. She is dizzy when sitting and again when standing. She feels better when she is lying back. Admits to not eating or drinking well and states that she is urinating quite a bit but it does not hurt. Occurred: other (2 days ago) Severity: moderate Injuries/Pain Location: head Context: lost balance Loss of Consciousness: no loss of consciousness Modifying Factors: Worse With Movement; Improves With Rest Associated Symptoms (Fall): No Chest Pain, No Shortness of Air Allergies and Home Medications Allergies Coded Allergies: Penicillins (Verified Allergy, Intermediate, RASH, 11/25/15) ciprofloxacin (Verified Allergy, Mild, 09/21/15) gabapentin (Verified Allergy, Mild, 09/21/15) methylprednisolone (Verified Allergy, Mild, 09/21/15) promethazine (Verified Allergy, Mild, 09/21/15) raloxifene (Verified Allergy, Unknown, 02/09/08) sulfamethoxazole (Verified Allergy, Unknown, 01/14/18) prednisone (Unverified Adverse Reaction, Unknown, 01/14/18) pt states it causes dizziness tramadol (Unverified Adverse Reaction, Unknown, 01/14/18) pt states it makes hair fall out Home Medications Alprazolam 0.25 Mg Tablet, 0.25 MG PO ONCE PRN for INSOMNIA Prescribed by: ANDRIA MILLAN on 11/25/15 0844 Alprazolam 0.25 Mg Tablet, 0.25 MG PO HS Prescribed by: ANDRIA MILLAN on 11/25/15 0846 Hydrocodone Bit/Acetaminophen 1 Tab Tab, 1 EACH PO Q6H PRN for PAIN-MILD TO MODERATE Prescribed by: BURAK GARCIA on 01/14/18 1221 Meloxicam 15 Mg Tablet, 15 MG PO DAILY Prescribed by: EMERSON STEELE on 09/29/17 022 Nitrofurantoin Macrocrystal 100 Mg Capsule, 100 MG PO BID Prescribed by: BURAK GARCIA on 12/04/18 0648 Ondansetron 4 Mg Tab.rapdis, 4 MG PO Q4H Prescribed by: LAXMI MÁRQUEZ on 09/21/15 0848 Prednisone 20 Mg Tab, 20 MG PO BID Prescribed by: EMERSON STEELE on 09/29/17224 Patient Home Medication List Home Medication List Reviewed: Yes Review of Systems Review of Systems Constitutional: see HPI; No chills, No fever Eyes: No Symptoms Reported Ears, Nose, Mouth, Throat: no symptoms reported Respiratory: no symptoms reported Cardiovascular: no symptoms reported Gastrointestinal: No nausea, No vomiting Genitourinary: no symptoms reported Musculoskeletal: joint pain; No muscle pain Psychiatric/Neurological: Other (dizziness) All Other Systems Reviewed Negative Unless Noted: Yes Past Zknjxrc-Cvquzo-Wsabmg Hx Past Med/Social Hx: Reviewed Nursing Past Med/Soc Hx Patient Social History Alcohol Use: Denies Use Recreational Drug Use: No Smoking Status: Never a Smoker 2nd Hand Smoke Exposure: No Recent Foreign Travel: No Contact w/Someone Who Travel: No Recent Infectious Disease Expo: No Recent Hopitalizations: Yes Immunizations Up To Date Tetanus Booster (TDap): Unknown Past Medical History Surgeries: Yes Appendectomy, Bladder Surgery, Breast, Eye Surgery, Hysterectomy, Oophorectomy, Orthopedic, Rectal, Tonsillectomy Respiratory: No Cardiac: Yes High Cholesterol, Hypertension Neurological: No 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 0.0oz. [id number]; 25.32 BMI Method:Stated General Appearance: WD/WN, no apparent distress HEENT: PERRL/EOMI, pharynx normal Neck: full range of motion, supple Cardiovascular: regular rate, rhythm, no murmur Respiratory: lungs clear, normal breath sounds Gastrointestinal: non tender, soft Extremities: non-tender, normal inspection Neurologic/Psychiatric: alert, normal mood/affect, oriented x 3 Skin: normal color, warm/dry [place] Coma Score Best Eye Response: (4) Open Spontaneously Best Verbal Response: (5) Oriented Best Motor Response: (6) Obeys Commands Progress/Results/Core Measures Results/Orders Lab Results Laboratory Tests Test 12/04/18 05:00 12/04/18 05:13 Range/Units White Blood Count 6.9 4.3-11.0 10^3/uL Red Blood Count 4.34 L 4.35-5.85 10^6/uL Hemoglobin 12.1 11.5-16.0 G/DL Hematocrit 37 35-52 % Mean Corpuscular Volume 86 80-99 FL Mean Corpuscular Hemoglobin 28 25-34 PG Mean Corpuscular Hemoglobin Concent 33 32-36 G/DL Red Cell Distribution Width 14.2 10.0-14.5 % Platelet Count 291 130-400 10^3/uL Mean Platelet Volume 10.2 7.4-10.4 FL Neutrophils (%) (Auto) 59 42-75 % Lymphocytes (%) (Auto) 23 12-44 % Monocytes (%) (Auto) 13 H 0-12 % Eosinophils (%) (Auto) 4 0-10 % Basophils (%) (Auto) 1 0-10 % Neutrophils # (Auto) 4.0 1.8-7.8 X 10^3 Lymphocytes # (Auto) 1.6 1.0-4.0 X 10^3 Monocytes # (Auto) 0.9 0.0-1.0 X 10^3 Eosinophils # (Auto) 0.3 0.0-0.3 10^3/uL Basophils # (Auto) 0.1 0.0-0.1 10^3/uL Sodium Level 141 135-145 MMOL/L Potassium Level 4.2 3.6-5.0 MMOL/L Chloride Level 108 H 98-107 MMOL/L Carbon Dioxide Level 24 21-32 MMOL/L Anion Gap 9 5-14 MMOL/L Blood Urea Nitrogen 19 H 7-18 MG/DL Creatinine 0.93 0.60-1.30 MG/DL Estimat Glomerular Filtration Rate 57 BUN/Creatinine Ratio 20 Glucose Level 99 70-105 MG/DL Calcium Level 10.7 H 8.5-10.1 MG/DL Corrected Calcium 10.5 H 8.5-10.1 MG/DL Magnesium Level 2.2 1.8-2.4 MG/DL Total Bilirubin 0.6 0.1-1.0 MG/DL Aspartate Amino Transf (AST/SGOT) 17 5-34 U/L Alanine Aminotransferase (ALT/SGPT) 11 0-55 U/L Alkaline Phosphatase 80 40-136 U/L C-Reactive Protein High Sensitivity 0.25 0.00-0.50 MG/DL Total Protein 7.2 6.4-8.2 GM/DL Albumin 4.2 3.2-4.5 GM/DL Thyroid Stimulating Hormone (TSH) 2.22 0.35-4.94 UIU/ML Urine Color YELLOW Urine Clarity SLIGHTLY CLOUDY Urine pH 7 5-9 Urine Specific [place] 1.015 L 1.016-1.022 Urine Protein NEGATIVE NEGATIVE Urine Glucose (UA) NEGATIVE NEGATIVE Urine Ketones NEGATIVE NEGATIVE Urine Nitrite POSITIVE H NEGATIVE Urine Bilirubin NEGATIVE NEGATIVE Urine Urobilinogen NORMAL NORMAL MG/DL Urine Leukocyte Esterase NEGATIVE NEGATIVE Urine RBC (Auto) NEGATIVE NEGATIVE Urine RBC NONE /HPF Urine WBC RARE /HPF Urine Squamous Epithelial Cells 2-5 /HPF Urine Crystals NONE /LPF Urine Bacteria LARGE H /HPF Urine Casts NONE /LPF Urine Mucus NEGATIVE /LPF Urine Culture Indicated YES My Orders Orders - BURAK GARCIA MD Cbc With Automated Diff (12/04/18 05:05) Comprehensive Metabolic Panel (12/04/18 05:05) Hs C Reactive Protein (12/04/18 05:05) Magnesium (12/04/18 05:05) Thyroid Stimulating Hormone (12/04/18 05:05) Saline Lock/Iv-Start (12/04/18 05:05) Ns Iv 500 Ml (Sodium Chloride 0.9%) (12/04/18 05:05) Ct Head/Face/Cervical Wo (12/04/18 05:05) Meclizine Tablet (Antivert Tablet) (12/04/18 05:20) Ua Culture If Indicated (12/04/18 05:31) Urine Culture (12/04/18 05:13) Ondansetron Injection (Zofran Injectio (12/04/18 06:03) Clonidine Tablet (Catapres Tablet) (12/04/18 06:09) Nitrofurantoin Capsule,Macro (Macrobid C (12/04/18 06:45) Medications Given in ED Current Medications Medications Dose Ordered Sig/Kylee Route Start Time Stop Time Status Last Admin Dose Admin Clonidine HCl 0.1 mg STK-MED ONCE .ROUTE 12/04/18 06:09 12/04/18 06:12 DC 12/04/18 06:11 0.1 MG Meclizine HCl 25 mg STK-MED ONCE .ROUTE 12/04/18 05:20 12/04/18 05:23 DC 12/04/18 05:22 25 MG Ondansetron HCl 4 mg STK-MED ONCE .ROUTE 12/04/18 06:03 12/04/18 06:04 DC 12/04/18 06:05 4 MG Sodium Chloride 500 ml @ 0 mls/hr Q0M ONCE IV 12/04/18 05:05 12/04/18 05:08 DC 12/04/18 05:20 999 MLS/HR Vital Signs/I&O 12/04/18 04:53 Pulse 93 Resp 17 B/P (MAP) 188/111 (136) Pulse Ox 96 O2 Delivery Room Air Blood Pressure Mean: 136 Progress Progress Note : Progress Note Silvadene and evaluated. CT head, face and neck ordered. IV, labs and UA ordered. Normal saline 500 mL bolus. Meclizine 25 mg by mouth. Monitor patient. 0640: UA does show nitrite positive. We will initiate nitrofurantoin for 3 days. She is to follow-up with her DrCarolyne for recheck and further evaluation. Blood pressure was treated with clonidine 0.1 mg by mouth but the blood pressure came down before the clonidine would have had time to work and is currently 150s over 80s. Discharged home with return precautions. Patient verbalize understanding instructions and agreement with plan. Departure Impression Primary Impression: Vertigo Additional Impressions: Urinary tract infection Qualified Codes: N30.00 - Acute cystitis without hematuria Acute dehydration Disposition: HOME, SELF-CARE Condition: Improved Departure-Patient Inst. Decision time for Depature: 06:45 Referrals: CRISTINA ELLISON MD (PCP/Family) Primary Care Physician Patient Instructions: Dehydration, Adult (DC), Urinary Tract Infection, Adult ( DC), Vertigo (a Type of Dizziness) (DC) Add. Discharge Instructions: All discharge instructions reviewed with patient and/or family. Voiced understanding. Drinking adequate amount of fluids. Follow with your doctor in a few days for recheck. Return for worse pain, fever, vomiting, weakness, breathing problems or other concerns as needed. Scripts Nitrofurantoin Macrocrystal (Nitrofurantoin) 100 Mg Capsule 100 MG PO BID, #6 CAP 0 Refills Prov: BURAK GARCIA MD 12/04/18 Copy Copies To 1: CRISTINA ELLISON MD, TIMOTHY D MD Dec 04, 2018 05:37
[2018-12-04 05:44] LABS: BACTERIA,URINE LARGE /HPF; WBC,URINE RARE /HPF
[2018-12-04] MEDS ORDERED: ONDANSETRON 4 MG/2 ML (SDV) Z0FRAN ONE (06:03)
[2018-12-04] MEDS ORDERED: cloNIDine 0.1 MG (CATAPRES) TAB ONE (06:09)
[2018-12-04] MEDS ORDERED: NITROFURANTOIN 100 MG (MACROBID) CAPSULE PO ONE (06:45)
[2018-12-04] MEDS ORDERED: NITR100C PO (06:48)
--- NOTE | 2018-12-04 07:01 | NUR ---
REPORT GIVEN TO PADILLA SHELTON TO ASSUME CARE OF PT @ THIS TIME.
[2018-12-04 07:29] VITALS: BP 161/94
--- NOTE | 2018-12-04 07:39 | Diagnostic Imaging Report ---
PROCEDURE: CT head, face, and cervical spine without contrast. TECHNIQUE: Multiple contiguous axial images were obtained through the head, neck, and facial bones without the use of intravenous contrast. Sagittal and coronal reformations through the cervical spine and facial bones were also performed. Auto Exposure Controls were utilized during the CT exam to meet ALARA standards for radiation dose reduction. INDICATION: Fall with dizziness and neck injury. CT HEAD: Ventricles and sulci are diffusely prominent. There is low-density within the deep white matter both hemispheres. There is no geographic low density to indicate territorial infarct. There is no midline shift. Calvarium is intact. There appears to be left supraorbital contusion. There is no paranasal sinus air-fluid level. IMPRESSION: Senescent findings in the brain with left periorbital contusion. Otherwise, no acute abnormality seen. CT CERVICAL SPINE: There is diffuse disc space narrowing endplate spurring most pronounced in the mid to lower cervical spine. There is no evidence of fracture or malalignment. No paraspinous hematoma is identified. IMPRESSION: Mild cervical spondylosis without CT evidence of acute cervical spinal abnormality. MAXILLOFACIAL CT: There is no evidence of fracture or malalignment. No paranasal sinus air-fluid levels identified. There is left periorbital contusions noted. The globes are intact without evidence of retrobulbar or hematoma. IMPRESSION: Left periorbital contusion without acute fracture in the maxillofacial region. Dictated by: Dictated on workstation # [id number]
== END 2018-12-04 07:32 | disposition home or self-care (01) ==
LOC: EDUNIT# 04:52 → ER 04:55
DX: R55 Syncope and collapse (principal); N39.0 Urinary tract infection, site not specified; E86.0 Dehydration; I10 Essential (primary) hypertension; E78.00 Pure hypercholesterolemia, unspecified; K21.9 Gastro-esophageal reflux disease without esophagitis; M81.0 Age-related osteoporosis without current pathological fracture; E03.9 Hypothyroidism, unspecified; F32.9 Major depressive disorder, single episode, unspecified; Z88.0 Allergy status to penicillin; Z88.1 Allergy status to other antibiotic agents; Z88.8 Allergy status to other drugs, medicaments and biological substances; Z88.2 Allergy status to sulfonamides; Z90.49 Acquired absence of other specified parts of digestive tract; Z90.710 Acquired absence of both cervix and uterus; Z90.89 Acquired absence of other organs; W01.0XXA Fall on same level from slipping, tripping and stumbling without subsequent striking against object, initial encounter
CPT/HCPCS: 36415; 70450; 70486; 72125; 80053; 81000; 83735; 84443; 85025; 86141; 87077; 87088; 87186

== ENCOUNTER → 2018-12-27 | Outpatient (CLI) | payer MEDICARE ==
[~2018-12-27] MED LIST changes: +NITR100C PO
[2018-12-27 11:35] LABS: BASOPHILS # (AUTO) 0.1 10^3/uL (0.0-0.1); BASOPHILS % (AUTO) 1 % (0-10); EOSINOPHILS # (AUTO) 0.3 10^3/uL (0.0-0.3); EOSINOPHILS % (AUTO) 4 % (0-10); HEMATOCRIT 37 % (35-52); HEMOGLOBIN 11.9 G/DL (11.5-16.0); LYMPHOCYTES % (AUTO) 30 % (12-44); MEAN CORPUSCULAR HEMOGLOBIN 28 PG (25-34); MEAN CORPUSCULAR HGB CONC 32 G/DL (32-36); MEAN CORPUSCULAR VOLUME 86 FL (80-99); MEAN PLATELET VOLUME 10.4 FL (7.4-10.4); MONOCYTES # (AUTO) 0.7 X 10^3 (0.0-1.0); MONOCYTES % (AUTO) 11 % (0-12); NEUTROPHILS # (AUTO) 3.6 X 10^3 (1.8-7.8); NEUTROPHILS % (AUTO) 54 % (42-75); PLATELET COUNT 301 10^3/uL (130-400); RED CELL DISTRIBUTION WIDTH 14.1 % (10.0-14.5); WHITE BLOOD COUNT 6.7 10^3/uL (4.3-11.0)
[2018-12-27 11:49] LABS: ALANINE AMINOTRANSFERASE 13 U/L (0-55); ALBUMIN 4.3 GM/DL (3.2-4.5); ALKALINE PHOSPHATASE 75 U/L (40-136); BILIRUBIN,TOTAL 0.5 MG/DL (0.1-1.0); BUN/CREATININE RATIO 15; CALCIUM 10.4 MG/DL (8.5-10.1); CARBON DIOXIDE 22 MMOL/L (21-32); CHLORIDE 106 MMOL/L (98-107); CREATININE SERUM 0.86 MG/DL (0.60-1.30); GFR ESTIMATED > 60; GLUCOSE 91 MG/DL (70-105); POTASSIUM 3.9 MMOL/L (3.6-5.0); SODIUM 140 MMOL/L (135-145)
== END ==
LOC: LAB 11:07
PROVIDERS: ATTEND Nurse Practitioner Family
DX: R42 Dizziness and giddiness (principal)
CPT/HCPCS: 36415; 80053; 85025

== ENCOUNTER 2019-04-17 14:59 | Outpatient (RCR) | payer MEDICARE | END 2019-04-17 16:12 | disposition home or self-care (01) | PROVIDERS: ATTEND Internal Medicine | DX: M62.81 Muscle weakness (generalized) (principal) ==

== ENCOUNTER → 2019-09-08 | Outpatient (CLI) | payer MEDICARE ==
[~2019-09-08] MED LIST changes: +CATHETER FLUSH 10 ML SYR IV PRN; +HOLD METFORMIN - RECEIVED CONTRAST 20 ML VIAL IV SCH; +IOHEXOL 350 MG/ML 100 ML (OMNIPAQUE 350) VIAL IV ONE; +NS 100 ML (IVPB) BAG IV ONE
--- NOTE | 2019-09-08 11:57 | Diagnostic Imaging Report ---
PROCEDURE: CT abdomen and pelvis with and without contrast. TECHNIQUE: Precontrast acquisitions were acquired through the abdomen and pelvis. Multiple contiguous axial images were obtained through the abdomen and pelvis after the administration of intravenous contrast. Auto Exposure Controls were utilized during the CT exam to meet ALARA standards for radiation dose reduction. INDICATION: Jaundice and elevated liver enzymes. Patient has upper abdominal pain and dark stools. COMPARISON: Correlation is made with prior CT from 09/29/2017. FINDINGS: The lung bases are clear of acute infiltrates. The liver demonstrates intrahepatic biliary ductal dilatation. There is also extrahepatic biliary ductal dilatation with extrahepatic bile duct measuring up to 11 mm. There appears to be a low-density mass in the region of the pancreatic head measuring 2.1 x 3.2 cm. This is ill defined. No definite pancreatic ductal dilatation is identified. There is some mild distention of the gallbladder. There are ill-defined low densities within the liver, suspicious for metastatic disease. Largest is in the right lobe superiorly measuring approximately 13 mm. The spleen is unremarkable. No adrenal mass is identified. The kidneys are unremarkable. The aorta is calcified but non-aneurysmal. No central retroperitoneal or mesenteric lymphadenopathy is seen. The small and large bowel loops are normal in caliber. There is no obstruction. There is no free fluid or fluid collection. No pelvic lymphadenopathy is identified. Delayed imaging was not performed through the pelvis. Unopacified bladder is unremarkable. Bony structures demonstrate postop changes of posterior instrumented fusion within the lumbar spine. IMPRESSION: Findings suspicious for a pancreatic head mass. There is intrahepatic and extrahepatic biliary ductal dilatation. In addition, there are ill-defined low-density lesions within the liver suspicious for hepatic metastatic disease. No abdominal or pelvic lymphadenopathy is detected. Dictated by: Dictated on workstation # [id number]
== END ==
LOC: RAD 10:18
PROVIDERS: ATTEND Nurse Practitioner Family
DX: K76.9 Liver disease, unspecified (principal); R17 Unspecified jaundice; R74.8 Abnormal levels of other serum enzymes
CPT/HCPCS: 74178

== ENCOUNTER 2019-10-06 10:19 | Outpatient (CLI) | payer MEDICARE ==
[~2019-10-06] VITALS: Ht 152.4 cm; Wt 54.1 kg
[~2019-10-06 10:19] MED LIST changes: -CATHETER FLUSH 10 ML SYR IV PRN; -HOLD METFORMIN - RECEIVED CONTRAST 20 ML VIAL IV SCH; -IOHEXOL 350 MG/ML 100 ML (OMNIPAQUE 350) VIAL IV ONE; -NS 100 ML (IVPB) BAG IV ONE
[2019-10-06] MEDS ORDERED: LEVO50TA PO ×2 (10:46)
[2019-10-06] MEDS ORDERED: ASPI-999 PO (10:46)
[2019-10-06] MEDS ORDERED: OMEP-280 PO (10:46)
[2019-10-07] MEDS ORDERED: ACET325T38 PO (13:30)
[2019-10-07] MEDS ORDERED: MELA1TAB27 PO (13:30)
[2019-10-07] MEDS ORDERED: MV-M1TAB38 PO (13:30)
[2019-10-07] MEDS ORDERED: CHOL200059 PO (13:30)
== END 2019-10-06 11:08 | disposition home or self-care (01) ==
LOC: PREOP 10:19
PROVIDERS: ATTEND Surgery
DX: Z01.818 Encounter for other preprocedural examination (principal)

== ENCOUNTER 2019-10-07 12:15 | Day surgery (SDC) | payer MEDICARE ==
[2019-10-07] VITALS (8 sets, daily range): BP systolic 128–159; BP diastolic 42–96
[~2019-10-07] VITALS: Ht 152 cm; Wt 54.1 kg
[~2019-10-07 12:15] MED LIST changes: +ASPI-999 PO; +LEVO50TA PO; +OMEP-280 PO
[2019-10-07] MEDS ORDERED: LACTATED RINGERS 1,000 ML IV PRN (12:35)
--- NOTE | 2019-10-07 12:53 | Progress Note-Pre Operative ---
Pre-Operative Progress Note H&P Reviewed The H&P was reviewed, patient examined and no changes noted. Time Seen by Provider: 12:52 Date H&P Reviewed: Oct 07, 2019 Time H&P Reviewed: 12:51 Pre-Operative Diagnosis: Venous insufficiency, Pancreatic CA JON CURIEL DO Oct 07, 2019 12:53
[2019-10-07] MEDS ORDERED: MV-M1TAB38 PO (13:30)
[2019-10-07] MEDS ORDERED: CHOL200059 PO (13:30)
[2019-10-07] MEDS ORDERED: MELA1TAB27 PO (13:30)
[2019-10-07] MEDS ORDERED: ACET325T38 PO (13:30)
[2019-10-07] MEDS ORDERED: HEParin (CENTRAL IV FLUSH) 500 UNIT/5 ML SYR ONE (13:35)
[2019-10-07] MEDS ORDERED: BUP/EPI 0.5% 1:200,000 (SENSORCAINE) 30 ML VIAL ONE (13:35)
[2019-10-07] MEDS ORDERED: 0.9% SODIUM CHLORIDE PF INJ 20 ML VIAL ONE (13:35)
[2019-10-07] MEDS ORDERED: LIDOCAINE PF 2% 5 ML (XYLOCAINE) VIAL ONE (13:50)
[2019-10-07] MEDS ORDERED: proPOfol 200 MG/20 ML (DIPRIVAN) VIAL IV ONE ×2 (13:50→14:25)
[2019-10-07] MEDS ORDERED: KETAMINE/NaCl 50 MG/5 ML SYRINGE (ED ONLY) ONE (13:51)
[2019-10-07] MEDS ORDERED: MIDAZOLAM 2 MG/2 ML (VERSED) VIAL ONE (13:51)
[2019-10-07] MEDS ORDERED: ceFAZolin INJECTION 1,000 MG ONE (13:58)
[2019-10-07] MEDS ORDERED: ceFAZolin INJECTION 1,000 MG VIAL IV ONE ×2 (14:30→14:45)
--- NOTE | 2019-10-07 14:48 | Progress Note-Post Operative ---
Post-Operative Progess Note Surgeon (s)/Real Estate Transaction Manager (s) Surgeon JON CURIEL DO Real Estate Transaction Manager: ADAMARIS HodgeII Pre-Operative Diagnosis Venous insufficiency, Pancreatic CA Post-Operative Diagnosis same Procedure & Operative Findings Date of Procedure 10/07/19 Procedure Performed/Findings Joan-cath insertion Anesthesia Type IV sedation by anesthesia Estimated Blood Loss Estimated blood loss (mL): less than 5ml Specimens/Packing Specimens Removed none JON CURIEL DO Oct 07, 2019 14:48
--- NOTE | 2019-10-07 14:49 | Discharge Inst-Surgical ---
Discharge Inst-Surgical Depart Medication/Instructions New, Converted or Re-Newed RX: Other (take home meds) Patient Instructions Follow up Appt: Make appointment for 1 week. [phone] Instructions: No lifting greater than 20 pounds. No strenuous activity. May shower in 24 hours, no tub bath or soaking. Use incentive spirometer at home as directed. No Smoking Skin/Wound Care: May remove bandages in am. You need to leave the Dermabond on incision it will fall off on it's own. Symptoms to Report: Appetite Changes, Extremity Discoloration, Numbness/Tingling, Swelling Increased, Bleeding Excessive, Eyesight Changes, Pain Increased, Urine Color Change, Constipation(Persistent), Fever over 101 degree F, Pain/Pressure in chest, Urinating Difficulty, Cough Up/Vomit Blood, Heart Beat Irreg/Pounding, Pain/Pressure in jaw, Cramps in feet or legs, Lightheadedness, Pain/Pressure in shoulder, Diarrhea(Persistent), Memory Changes Suddenly, Questions/Concerns, Weight gain consecutive days, Dizziness/Fainting, Nausea/Vomiting, Shortness of Breath, Weight gain over 2 pounds If questions or concerns contact your physician Or seek help at emergency department. Activity Activity as Tolerated: Yes Activity Instructions: Avoid Stress to Incision Driving Instructions: No Driving/Refer to Dr. Álvarez Discharge Diet: No Restrictions Diet After 24 Hours: Clear Liquid if Nauseous If Any Problems/Questions/Issu: Contact Your Physician, Go to Emergency Room Skin/Wound Care Infection Signs and Symptoms: Increased Redness, Foul Odor of Wound, Increased Drainage, Skin Itchy or Has a Rash, Increased Swelling, Temperature Above 101 F Bathing Instructions: Shower Stitches/Micro/Dermabond Dis: Dermabond Ice Pack: Ice On and Off Site JON CURIEL DO Oct 07, 2019 14:49
--- NOTE | 2019-10-07 14:55 | Anesthesia-General Post-Op ---
MAC Patient Condition Mental Status/LOC: Same as Preop Cardiovascular: Satisfactory Nausea/Vomiting: Absent Respiratory: Satisfactory Pain: Controlled Complications: Absent Post Op Complications Complications None Follow Up Care/Instructions Patient Instructions None needed. Anesthesiology Discharge Order Discharge Order Patient is doing well, no complaints, stable vital signs, no apparent adverse anesthesia problems. JANKI CEBALLOS DO Oct 07, 2019 14:54
--- NOTE | 2019-10-07 20:13 | Diagnostic Imaging Report ---
EXAMINATION: Fluoroscopy at 2:37 PM INDICATION: Port insertion Fluoroscopic assistance was provided for Dr. Gavin Godoy during his Port-A-Cath insertion procedure. 49.8 seconds of fluoroscopy time was utilized. A single spot film of the thorax was obtained. There is a Port-A-Cath in place on the right with the tip of the catheter overlying the midportion of the superior vena cava. IMPRESSION: Fluoroscopic assistance was provided for Dr. Gavin Godoy. Dictated by: Dictated on workstation # [id number]
--- NOTE | 2019-10-07 23:48 | OPERATIVE REPORT ---
DATE OF SERVICE: PREOPERATIVE DIAGNOSES: 1. Pancreatic cancer. 2. Venous insufficiency. POSTOPERATIVE DIAGNOSIS: 1. Pancreatic cancer. 2. Venous insufficiency. PROCEDURES: Insertion of Port-A-Cath, right anterior chest wall, right IJ. SURGEON: Gavin Godoy DO. SENIOR RESEARCH ANALYST: Berto Bryan MS3. SPECIMENS: None. BLOOD LOSS: Less than 5 mL. FLUIDS: Per anesthesia. POSTOPERATIVE CONDITION: Stable. INDICATION FOR PROCEDURE: The patient is an 84-year-old female, who unfortunately recently diagnosed with pancreatic cancer and need a port for chemotherapy secondary to venous insufficiency and poor veins. FINDINGS: The patient had a Port-A-Cath placed in the right anterior chest wall, right internal jugular vein. PROCEDURE NOTE: After informed consent was obtained, the patient was brought to the operating room, placed on the operating table in supine position. She was sterilely prepped and draped in normal fashion. Local lidocaine was used to infiltrate the right anterior chest wall as well as towards the right clavicle and then attempted a right subclavian vein access, accessed it twice, but both times, the guidewire was going up into the neck when checked with fluoroscopy. Tried one last time could not get it passed, so elected to switch to a right IJ brought the ultrasound in and under ultrasound guidance, watched the needle go into the right internal jugular vein, good flash of blood, removed the syringe, placed a guidewire using Seldinger technique, it went down actually first went up into the neck, but then we backup and then went down into the superior vena cava. Removed the needle, then tunneled from the stab incision through the neck above the clavicle and into the pocket created. We created a pocket by making an incision in the chest, right anterior chest wall with #11 blade, carried down to skin into subcutaneous tissue, then deepened down to subcutaneous tissue with Bovie electrocautery down to the pectoralis major fascia and then created a pocket with blunt dissection with Bovie electrocautery, tunneled the catheter into here and then over the guidewire placed a dilator using Seldinger technique, it went in easily checked for fluoroscopy, it was in good position. Removed the inner portion of the dilator and guidewire and then placed the catheter down the dilator sheath using the Seldinger technique, it went in easily, checked fluoroscopy, it was in good position. Removed the dilator sheath. At this point, then attached the port to the catheter and put the locking mechanism on then accessed the port with a Saez needle, got a good flash of blood and easily flushed with saline and then aspirated and flushed with heparin. Port was then placed into the pocket previously created in the right anterior chest wall, sutured down to the chest wall with a 3-0 Prolene suture, checked for fluoroscopy, it was in good position. There were no kinks either at the port or in the neck. At this point, then closed the incision closing the subcutaneous tissue with 3-0 Vicryl 2 interrupted sutures, then closed the skin with 4-0 undyed Monocryl 3 interrupted subcuticular stitches. Area was cleaned and dried. Dermabond placed over this incision as well as up an incision in the neck and then Band-Aids placed. Sponge, instrument and needle count correct at the end of the case. Job ID: [id number] DocumentID: [id number] Dictated Date: 10/07/2019 14:46:30 Archives Director Date: 10/07/2019 23:47:37 Dictated By: GAVIN GODOY DO
== END 2019-10-07 16:10 | disposition home or self-care (01) ==
LOC: SDC 12:15
PROVIDERS: ATTEND Surgery
DX: I87.2 Venous insufficiency (chronic) (peripheral) (principal); C25.9 Malignant neoplasm of pancreas, unspecified; K21.9 Gastro-esophageal reflux disease without esophagitis; E03.9 Hypothyroidism, unspecified; M19.90 Unspecified osteoarthritis, unspecified site; M51.16 Intervertebral disc disorders with radiculopathy, lumbar region; M48.061 Spinal stenosis, lumbar region without neurogenic claudication; M96.1 Postlaminectomy syndrome, not elsewhere classified; J30.9 Allergic rhinitis, unspecified; F32.9 Major depressive disorder, single episode, unspecified; Z88.0 Allergy status to penicillin; Z88.1 Allergy status to other antibiotic agents; Z88.8 Allergy status to other drugs, medicaments and biological substances; Z88.2 Allergy status to sulfonamides; Z88.5 Allergy status to narcotic agent; Z79.82 Long term (current) use of aspirin; Z79.899 Other long term (current) drug therapy; Z90.710 Acquired absence of both cervix and uterus; Z90.89 Acquired absence of other organs; Z83.3 Family history of diabetes mellitus; Z82.49 Family history of ischemic heart disease and other diseases of the circulatory system; Z80.9 Family history of malignant neoplasm, unspecified
CPT/HCPCS: 87081

== ENCOUNTER 2019-11-25 08:51 | Outpatient (RCR) | payer MEDICARE ==
[2019-10-14 12:17] LABS: BASOPHILS # (AUTO) 0.1 10^3/uL (0.0-0.1); BASOPHILS % (AUTO) 1 % (0-10); EOSINOPHILS # (AUTO) 0.4 10^3/uL (0.0-0.3); EOSINOPHILS % (AUTO) 6 % (0-10); HEMATOCRIT 32 % (35-52); HEMOGLOBIN 10.4 G/DL (11.5-16.0); LYMPHOCYTES # (AUTO) 1.8 X 10^3 (1.0-4.0); LYMPHOCYTES % (AUTO) 26 % (12-44); MEAN CORPUSCULAR HEMOGLOBIN 30 PG (25-34); MEAN CORPUSCULAR HGB CONC 33 G/DL (32-36); MEAN CORPUSCULAR VOLUME 92 FL (80-99); MEAN PLATELET VOLUME 10.8 FL (7.4-10.4); MONOCYTES # (AUTO) 0.8 X 10^3 (0.0-1.0); MONOCYTES % (AUTO) 11 % (0-12); NEUTROPHILS # (AUTO) 4.1 X 10^3 (1.8-7.8); NEUTROPHILS % (AUTO) 57 % (42-75); PLATELET COUNT 304 10^3/uL (130-400); RED CELL DISTRIBUTION WIDTH 18.3 % (10.0-14.5); WHITE BLOOD COUNT 7.1 10^3/uL (4.3-11.0)
[2019-10-14 12:38] LABS: ALANINE AMINOTRANSFERASE 28 U/L (0-55); ALKALINE PHOSPHATASE 299 U/L (40-136); BUN/CREATININE RATIO 16; CALCIUM 10.2 MG/DL (8.5-10.1); CARBON DIOXIDE 23 MMOL/L (21-32); CHLORIDE 107 MMOL/L (98-107); GFR ESTIMATED > 60; GLUCOSE 96 MG/DL (70-105); SODIUM 140 MMOL/L (135-145); TOTAL PROTEIN 6.9 GM/DL (6.4-8.2)
[2019-10-21 09:04] LABS: BASOPHILS % (AUTO) 1 % (0-10); EOSINOPHILS # (AUTO) 0.1 10^3/uL (0.0-0.3); EOSINOPHILS % (AUTO) 3 % (0-10); HEMATOCRIT 31 % (35-52); HEMOGLOBIN 10.2 G/DL (11.5-16.0); LYMPHOCYTES # (AUTO) 1.3 X 10^3 (1.0-4.0); LYMPHOCYTES % (AUTO) 29 % (12-44); MEAN CORPUSCULAR HEMOGLOBIN 31 PG (25-34); MEAN CORPUSCULAR HGB CONC 33 G/DL (32-36); MEAN CORPUSCULAR VOLUME 93 FL (80-99); MEAN PLATELET VOLUME 9.9 FL (7.4-10.4); MONOCYTES # (AUTO) 0.6 X 10^3 (0.0-1.0); MONOCYTES % (AUTO) 14 % (0-12); NEUTROPHILS # (AUTO) 2.4 X 10^3 (1.8-7.8); NEUTROPHILS % (AUTO) 53 % (42-75); PLATELET COUNT 227 10^3/uL (130-400); RED CELL DISTRIBUTION WIDTH 16.7 % (10.0-14.5); WHITE BLOOD COUNT 4.5 10^3/uL (4.3-11.0)
[2019-10-21 09:38] LABS: BUN/CREATININE RATIO 18; CALCIUM 10.2 MG/DL (8.5-10.1); CARBON DIOXIDE 25 MMOL/L (21-32); CHLORIDE 105 MMOL/L (98-107); CREATININE SERUM 0.79 MG/DL (0.60-1.30); GFR ESTIMATED > 60; GLUCOSE 110 MG/DL (70-105); POTASSIUM 3.8 MMOL/L (3.6-5.0); SODIUM 137 MMOL/L (135-145)
[2019-11-04 09:05] LABS: BASOPHILS # (AUTO) 0.1 10^3/uL (0.0-0.1); BASOPHILS % (AUTO) 1 % (0-10); EOSINOPHILS # (AUTO) 0.3 10^3/uL (0.0-0.3); EOSINOPHILS % (AUTO) 3 % (0-10); HEMATOCRIT 33 % (35-52); HEMOGLOBIN 10.5 G/DL (11.5-16.0); LYMPHOCYTES # (AUTO) 1.4 X 10^3 (1.0-4.0); LYMPHOCYTES % (AUTO) 17 % (12-44); MEAN CORPUSCULAR HEMOGLOBIN 30 PG (25-34); MEAN CORPUSCULAR HGB CONC 32 G/DL (32-36); MEAN CORPUSCULAR VOLUME 95 FL (80-99); MEAN PLATELET VOLUME 8.8 FL (7.4-10.4); MONOCYTES # (AUTO) 0.9 X 10^3 (0.0-1.0); MONOCYTES % (AUTO) 11 % (0-12); NEUTROPHILS # (AUTO) 5.6 X 10^3 (1.8-7.8); NEUTROPHILS % (AUTO) 68 % (42-75); PLATELET COUNT 656 10^3/uL (130-400); RED CELL DISTRIBUTION WIDTH 15.9 % (10.0-14.5); WHITE BLOOD COUNT 8.3 10^3/uL (4.3-11.0)
[2019-11-04 09:20] LABS: BUN/CREATININE RATIO 14; CALCIUM 10.3 MG/DL (8.5-10.1); CARBON DIOXIDE 24 MMOL/L (21-32); CHLORIDE 107 MMOL/L (98-107); CREATININE SERUM 0.87 MG/DL (0.60-1.30); GFR ESTIMATED > 60; GLUCOSE 134 MG/DL (70-105); POTASSIUM 3.8 MMOL/L (3.6-5.0); SODIUM 141 MMOL/L (135-145)
[2019-11-11 09:12] LABS: BASOPHILS # (AUTO) 0.1 10^3/uL (0.0-0.1); BASOPHILS % (AUTO) 1 % (0-10); EOSINOPHILS # (AUTO) 0.3 10^3/uL (0.0-0.3); EOSINOPHILS % (AUTO) 3 % (0-10); HEMATOCRIT 33 % (35-52); HEMOGLOBIN 10.8 G/DL (11.5-16.0); LYMPHOCYTES # (AUTO) 1.7 X 10^3 (1.0-4.0); LYMPHOCYTES % (AUTO) 21 % (12-44); MEAN CORPUSCULAR HEMOGLOBIN 30 PG (25-34); MEAN CORPUSCULAR HGB CONC 33 G/DL (32-36); MEAN CORPUSCULAR VOLUME 93 FL (80-99); MEAN PLATELET VOLUME 9.6 FL (7.4-10.4); MONOCYTES % (AUTO) 12 % (0-12); NEUTROPHILS # (AUTO) 5.3 X 10^3 (1.8-7.8); NEUTROPHILS % (AUTO) 64 % (42-75); PLATELET COUNT 543 10^3/uL (130-400); RED CELL DISTRIBUTION WIDTH 14.9 % (10.0-14.5); WHITE BLOOD COUNT 8.3 10^3/uL (4.3-11.0)
[2019-11-11 09:33] LABS: ALANINE AMINOTRANSFERASE 15 U/L (0-55); ALKALINE PHOSPHATASE 223 U/L (40-136); BILIRUBIN,TOTAL 0.9 MG/DL (0.1-1.0); BUN/CREATININE RATIO 12; CALCIUM 10.3 MG/DL (8.5-10.1); CARBON DIOXIDE 27 MMOL/L (21-32); CHLORIDE 105 MMOL/L (98-107); CREATININE SERUM 0.82 MG/DL (0.60-1.30); GFR ESTIMATED > 60; GLUCOSE 100 MG/DL (70-105); SODIUM 139 MMOL/L (135-145); TOTAL PROTEIN 6.8 GM/DL (6.4-8.2)
[2019-11-18 13:20] LABS: BASOPHILS # (AUTO) 0.1 10^3/uL (0.0-0.1); BASOPHILS % (AUTO) 1 % (0-10); EOSINOPHILS # (AUTO) 0.1 10^3/uL (0.0-0.3); EOSINOPHILS % (AUTO) 3 % (0-10); HEMATOCRIT 33 % (35-52); HEMOGLOBIN 10.6 G/DL (11.5-16.0); LYMPHOCYTES # (AUTO) 1.4 X 10^3 (1.0-4.0); LYMPHOCYTES % (AUTO) 34 % (12-44); MEAN CORPUSCULAR HEMOGLOBIN 30 PG (25-34); MEAN CORPUSCULAR HGB CONC 32 G/DL (32-36); MEAN CORPUSCULAR VOLUME 93 FL (80-99); MEAN PLATELET VOLUME 10.1 FL (7.4-10.4); MONOCYTES # (AUTO) 0.6 X 10^3 (0.0-1.0); MONOCYTES % (AUTO) 14 % (0-12); NEUTROPHILS % (AUTO) 48 % (42-75); PLATELET COUNT 281 10^3/uL (130-400)
[2019-11-18 13:45] LABS: BUN/CREATININE RATIO 15; CALCIUM 10.1 MG/DL (8.5-10.1); CARBON DIOXIDE 21 MMOL/L (21-32); CHLORIDE 106 MMOL/L (98-107); CREATININE SERUM 0.82 MG/DL (0.60-1.30); GFR ESTIMATED > 60; GLUCOSE 134 MG/DL (70-105); POTASSIUM 4.2 MMOL/L (3.6-5.0); SODIUM 138 MMOL/L (135-145)
[~2019-11-25] VITALS: Ht 144.8 cm; Wt 54.4 kg
[~2019-11-25 08:51] MED LIST changes: +ACET325T38 PO; +CHOL200059 PO; +CTR IV SCH; +DEXAMETHASONE IV PRN; +GEMCITABINE HCL 1 GM, GEMCITABINE HCL 200 MG in NS (IVPB) CANCER CENTER 100 ML IV SCH; +GEMCITABINE HCL 1 GM, GEMCITABINE HCL 500 MG in NS (IVPB) CANCER CENTER 100 ML IV SCH; +MELA1TAB27 PO; +MV-M1TAB38 PO; +NS IV 1000 ML (CANCER CTR) IV SCH; +NS IV 500 ML (CANCER CENTER) 500 ML ONE; -OMEP-280 PO; +OMEP20CA18 PO; +ONDANSETRON IV PRN; +PACLITAXEL PROTEIN IV SCH; +[UNRECOGNIZED DRUG - OTHER] IV PRN; +[UNRECOGNIZED DRUG - OTHER] IV PRN; +[UNRECOGNIZED DRUG - OTHER] IV PRN
[2019-11-25 09:17] LABS: BASOPHILS % (AUTO) 0 % (0-10); EOSINOPHILS % (AUTO) 0 % (0-10); HEMATOCRIT 33 % (35-52); HEMOGLOBIN 10.9 G/DL (11.5-16.0); LYMPHOCYTES # (AUTO) 0.2 X 10^3 (1.0-4.0); LYMPHOCYTES % (AUTO) 2 % (12-44); MEAN CORPUSCULAR HEMOGLOBIN 30 PG (25-34); MEAN CORPUSCULAR HGB CONC 33 G/DL (32-36); MEAN CORPUSCULAR VOLUME 92 FL (80-99); MEAN PLATELET VOLUME 10.2 FL (7.4-10.4); MONOCYTES # (AUTO) 0.3 X 10^3 (0.0-1.0); MONOCYTES % (AUTO) 3 % (0-12); NEUTROPHILS # (AUTO) 9.7 X 10^3 (1.8-7.8); NEUTROPHILS % (AUTO) 95 % (42-75); PLATELET COUNT 103 10^3/uL (130-400); RED CELL DISTRIBUTION WIDTH 14.1 % (10.0-14.5); WHITE BLOOD COUNT 10.3 10^3/uL (4.3-11.0)
[2019-11-25 09:36] LABS: CALCIUM 10.7 MG/DL (8.5-10.1)
[2019-11-25 09:45] LABS: POTASSIUM 3.6 MMOL/L (3.6-5.0)
[2019-11-25 10:25] LABS: BILIRUBIN,URINE NEGATIVE (NEGATIVE); CLARITY,URINE CLEAR; COLOR,URINE YELLOW; GLUCOSE, URINE (UA) NEGATIVE (NEGATIVE); KETONES,URINE NEGATIVE (NEGATIVE); LEUKOCYTE ESTERASE ,URINE NEGATIVE (NEGATIVE); NITRITE,URINE NEGATIVE (NEGATIVE); PROTEIN,URINE NEGATIVE (NEGATIVE)
[2019-11-25 11:02] LABS: AMORPHOUS SEDIMENT,UR FEW AMOR PHOSPHATE /LPF; BACTERIA,URINE NEGATIVE /HPF
--- NOTE | 2019-11-25 11:58 | Diagnostic Imaging Report ---
INDICATION: Pancreatic neoplasm. TIME OF EXAMINATION: 10:33 AM. COMPARISON: 11/18/2015. FINDINGS: The heart size is normal. The right chest wall Port has its tip overlying the SVC. No infiltrates are seen. No effusion or pneumothorax. There are postop changes of right shoulder reverse hemiarthroplasty. Postop changes of rotator cuff repair in the left shoulder are noted. There are postop changes in the lumbar spine. IMPRESSION: No acute cardiopulmonary process is detected. Dictated by: Dictated on workstation # [id number]
[2019-12-09 09:11] LABS: BASOPHILS # (AUTO) 0.1 10^3/uL (0.0-0.1); BASOPHILS % (AUTO) 1 % (0-10); EOSINOPHILS # (AUTO) 0.2 10^3/uL (0.0-0.3); EOSINOPHILS % (AUTO) 2 % (0-10); HEMATOCRIT 34 % (35-52); LYMPHOCYTES # (AUTO) 1.3 X 10^3 (1.0-4.0); LYMPHOCYTES % (AUTO) 15 % (12-44); MEAN CORPUSCULAR HEMOGLOBIN 29 PG (25-34); MEAN CORPUSCULAR HGB CONC 32 G/DL (32-36); MEAN CORPUSCULAR VOLUME 91 FL (80-99); MEAN PLATELET VOLUME 9.6 FL (7.4-10.4); MONOCYTES % (AUTO) 12 % (0-12); NEUTROPHILS % (AUTO) 70 % (42-75); PLATELET COUNT 572 10^3/uL (130-400); RED CELL DISTRIBUTION WIDTH 15.1 % (10.0-14.5); WHITE BLOOD COUNT 8.6 10^3/uL (4.3-11.0)
[2019-12-09 09:31] LABS: ALANINE AMINOTRANSFERASE 45 U/L (0-55); ALBUMIN 3.8 GM/DL (3.2-4.5); ALKALINE PHOSPHATASE 254 U/L (40-136); BILIRUBIN,TOTAL 0.5 MG/DL (0.1-1.0); BUN/CREATININE RATIO 14; CALCIUM 9.9 MG/DL (8.5-10.1); CARBON DIOXIDE 20 MMOL/L (21-32); CHLORIDE 104 MMOL/L (98-107); CREATININE SERUM 0.85 MG/DL (0.60-1.30); GFR ESTIMATED > 60; GLUCOSE 114 MG/DL (70-105); POTASSIUM 4.2 MMOL/L (3.6-5.0); SODIUM 137 MMOL/L (135-145); TOTAL PROTEIN 6.7 GM/DL (6.4-8.2)
[2019-12-09 10:04] LABS: SMEAR SCAN COMMENT YES
== END 2019-12-09 09:29 | disposition home or self-care (01) ==
LOC: ONC 08:51
PROVIDERS: ATTEND Internal Medicine Hematology & Oncology
DX: K86.89 Other specified diseases of pancreas (principal); K83.1 Obstruction of bile duct; K76.89 Other specified diseases of liver; J30.2 Other seasonal allergic rhinitis; M19.90 Unspecified osteoarthritis, unspecified site; E07.9 Disorder of thyroid, unspecified; E78.00 Pure hypercholesterolemia, unspecified; Z98.890 Other specified postprocedural states; Z90.710 Acquired absence of both cervix and uterus; Z90.89 Acquired absence of other organs; Z96.89 Presence of other specified functional implants; Z98.1 Arthrodesis status; Z90.49 Acquired absence of other specified parts of digestive tract; Z80.9 Family history of malignant neoplasm, unspecified
CPT/HCPCS: 36591; 71046; 80048; 80053; 81000; 85025; 86301; 87040; 87077; 87186; 87804; 96375; 96413; 96417; 99214

== ENCOUNTER → 2019-12-09 | Outpatient (CLI) | payer MEDICARE ==
[~2019-12-09] MED LIST changes: -GEMCITABINE HCL 1 GM, GEMCITABINE HCL 500 MG in NS (IVPB) CANCER CENTER 100 ML IV SCH; -NS IV 500 ML (CANCER CENTER) 500 ML ONE; +PACLitaxel PROTEIN 170 MG in EMPTY IV BAG (PVC) CANCER CTR 1 EA IV SCH; -[UNRECOGNIZED DRUG - OTHER] IV PRN; -[UNRECOGNIZED DRUG - OTHER] IV PRN
== END ==
LOC: ONC 09:31
PROVIDERS: ATTEND Internal Medicine Hematology & Oncology
DX: K86.89 Other specified diseases of pancreas (principal); K83.1 Obstruction of bile duct; K76.89 Other specified diseases of liver; J30.2 Other seasonal allergic rhinitis; M19.90 Unspecified osteoarthritis, unspecified site; E07.9 Disorder of thyroid, unspecified; E78.00 Pure hypercholesterolemia, unspecified; Z98.890 Other specified postprocedural states; Z90.710 Acquired absence of both cervix and uterus; Z90.89 Acquired absence of other organs; Z96.89 Presence of other specified functional implants; Z98.1 Arthrodesis status; Z90.49 Acquired absence of other specified parts of digestive tract; Z80.9 Family history of malignant neoplasm, unspecified
CPT/HCPCS: 36591; 96375; 96413; 96417

== ENCOUNTER → 2020-01-18 | Outpatient (CLI) | payer MEDICARE ==
[~2020-01-18] MED LIST changes: -CTR IV SCH; -DEXAMETHASONE IV PRN; -GEMCITABINE HCL 1 GM, GEMCITABINE HCL 200 MG in NS (IVPB) CANCER CENTER 100 ML IV SCH; -NS IV 1000 ML (CANCER CTR) IV SCH; -ONDANSETRON IV PRN; -PACLITAXEL PROTEIN IV SCH; -PACLitaxel PROTEIN 170 MG in EMPTY IV BAG (PVC) CANCER CTR 1 EA IV SCH; -[UNRECOGNIZED DRUG - OTHER] IV PRN
--- NOTE | 2020-01-18 11:55 | Diagnostic Imaging Report ---
INDICATION: Routine screening. COMPARISON: 10/07/2018 and 10/02/2017. TECHNIQUE: 2D and 3D bilateral screening mammography was performed with CAD. FINDINGS: Both breasts remain heterogeneously dense, limiting the sensitivity of mammography. Post surgical changes and scarring in the upper-outer right breast are again noted, similar to the prior exam. There are occasional benign calcifications noted. No new mass or malignant appearing microcalcifications are seen. The axillae are unremarkable. IMPRESSION: No mammographic features suspicious for malignancy are identified. ACR BI-RADS Category 2: Benign findings. Result letter will be mailed to the patient. Note: At least 10% of breast cancer is not imaged by mammography. Dictated by: Dictated on workstation # [id number]
== END ==
LOC: RAD 10:05
PROVIDERS: ATTEND Nurse Practitioner Family
DX: Z12.31 Encounter for screening mammogram for malignant neoplasm of breast (principal)
CPT/HCPCS: 77063; 77067

== ENCOUNTER → 2020-02-15 | Outpatient (CLI) | payer MEDICARE | LOC: LABNPT 07:15 | PROVIDERS: ATTEND Nurse Practitioner Adult Health | DX: Z01.818 Encounter for other preprocedural examination (principal) | CPT/HCPCS: 87635 ==

== ENCOUNTER 2020-03-02 12:58 | Outpatient (RCR) | payer MEDICARE ==
[2019-12-16 08:50] LABS: BASOPHILS # (AUTO) 0.1 10^3/uL (0.0-0.1); BASOPHILS % (AUTO) 1 % (0-10); EOSINOPHILS # (AUTO) 0.1 10^3/uL (0.0-0.3); EOSINOPHILS % (AUTO) 3 % (0-10); HEMATOCRIT 33 % (35-52); HEMOGLOBIN 10.7 G/DL (11.5-16.0); LYMPHOCYTES % (AUTO) 25 % (12-44); MEAN CORPUSCULAR HEMOGLOBIN 29 PG (25-34); MEAN CORPUSCULAR HGB CONC 33 G/DL (32-36); MEAN CORPUSCULAR VOLUME 90 FL (80-99); MEAN PLATELET VOLUME 10.6 FL (7.4-10.4); MONOCYTES # (AUTO) 0.5 X 10^3 (0.0-1.0); MONOCYTES % (AUTO) 14 % (0-12); NEUTROPHILS # (AUTO) 2.3 X 10^3 (1.8-7.8); NEUTROPHILS % (AUTO) 57 % (42-75); PLATELET COUNT 290 10^3/uL (130-400); RED CELL DISTRIBUTION WIDTH 14.9 % (10.0-14.5)
[2019-12-16 09:14] LABS: POTASSIUM 4.2 MMOL/L (3.6-5.0)
[2019-12-16 09:16] LABS: CALCIUM 10.6 MG/DL (8.5-10.1)
[2019-12-16 09:20] LABS: CREATININE SERUM 0.89 MG/DL (0.60-1.30)
[2019-12-23 09:22] LABS: BASOPHILS # (AUTO) 0.1 10^3/uL (0.0-0.1); BASOPHILS % (AUTO) 1 % (0-10); EOSINOPHILS # (AUTO) 0.2 10^3/uL (0.0-0.3); EOSINOPHILS % (AUTO) 4 % (0-10); HEMATOCRIT 33 % (35-52); HEMOGLOBIN 10.4 G/DL (11.5-16.0); LYMPHOCYTES # (AUTO) 1.2 X 10^3 (1.0-4.0); LYMPHOCYTES % (AUTO) 20 % (12-44); MEAN CORPUSCULAR HEMOGLOBIN 28 PG (25-34); MEAN CORPUSCULAR HGB CONC 32 G/DL (32-36); MEAN CORPUSCULAR VOLUME 89 FL (80-99); MEAN PLATELET VOLUME 9.8 FL (7.4-10.4); MONOCYTES # (AUTO) 0.7 X 10^3 (0.0-1.0); MONOCYTES % (AUTO) 12 % (0-12); NEUTROPHILS # (AUTO) 3.8 X 10^3 (1.8-7.8); NEUTROPHILS % (AUTO) 63 % (42-75); PLATELET COUNT 308 10^3/uL (130-400); RED CELL DISTRIBUTION WIDTH 15.4 % (10.0-14.5); WHITE BLOOD COUNT 5.9 10^3/uL (4.3-11.0)
[2019-12-23 09:36] LABS: BUN/CREATININE RATIO 16; CARBON DIOXIDE 21 MMOL/L (21-32); CHLORIDE 106 MMOL/L (98-107); CREATININE SERUM 0.76 MG/DL (0.60-1.30); GFR ESTIMATED > 60; GLUCOSE 121 MG/DL (70-105); POTASSIUM 3.9 MMOL/L (3.6-5.0); SODIUM 136 MMOL/L (135-145)
[2019-12-30 09:13] LABS: BASOPHILS % (AUTO) 1 % (0-10); EOSINOPHILS # (AUTO) 0.1 10^3/uL (0.0-0.3); EOSINOPHILS % (AUTO) 2 % (0-10); HEMATOCRIT 32 % (35-52); HEMOGLOBIN 10.1 G/DL (11.5-16.0); LYMPHOCYTES % (AUTO) 23 % (12-44); MEAN CORPUSCULAR HEMOGLOBIN 28 PG (25-34); MEAN CORPUSCULAR HGB CONC 32 G/DL (32-36); MEAN CORPUSCULAR VOLUME 89 FL (80-99); MONOCYTES # (AUTO) 0.6 X 10^3 (0.0-1.0); MONOCYTES % (AUTO) 14 % (0-12); NEUTROPHILS # (AUTO) 2.5 X 10^3 (1.8-7.8); NEUTROPHILS % (AUTO) 60 % (42-75); PLATELET COUNT 425 10^3/uL (130-400); RED CELL DISTRIBUTION WIDTH 15.3 % (10.0-14.5); WHITE BLOOD COUNT 4.2 10^3/uL (4.3-11.0)
[2019-12-30 09:31] LABS: CHLORIDE 103 MMOL/L (98-107); POTASSIUM 4.1 MMOL/L (3.6-5.0); SODIUM 137 MMOL/L (135-145)
[2019-12-30 09:32] LABS: CALCIUM 10.7 MG/DL (8.5-10.1); GLUCOSE 129 MG/DL (70-105)
[2019-12-30 09:34] LABS: CARBON DIOXIDE 23 MMOL/L (21-32)
[2019-12-30 09:36] LABS: CREATININE SERUM 0.85 MG/DL (0.60-1.30); GFR ESTIMATED > 60
[2019-12-30 09:37] LABS: BUN/CREATININE RATIO 15
[2020-01-06 09:21] LABS: BASOPHILS # (AUTO) 0.1 10^3/uL (0.0-0.1); BASOPHILS % (AUTO) 1 % (0-10); EOSINOPHILS # (AUTO) 0.1 10^3/uL (0.0-0.3); EOSINOPHILS % (AUTO) 2 % (0-10); HEMATOCRIT 33 % (35-52); HEMOGLOBIN 10.5 G/DL (11.5-16.0); LYMPHOCYTES # (AUTO) 1.1 X 10^3 (1.0-4.0); LYMPHOCYTES % (AUTO) 18 % (12-44); MEAN CORPUSCULAR HEMOGLOBIN 28 PG (25-34); MEAN CORPUSCULAR HGB CONC 32 G/DL (32-36); MEAN CORPUSCULAR VOLUME 89 FL (80-99); MEAN PLATELET VOLUME 10.3 FL (7.4-10.4); MONOCYTES # (AUTO) 0.8 X 10^3 (0.0-1.0); MONOCYTES % (AUTO) 12 % (0-12); NEUTROPHILS # (AUTO) 4.4 X 10^3 (1.8-7.8); NEUTROPHILS % (AUTO) 68 % (42-75); PLATELET COUNT 287 10^3/uL (130-400); RED CELL DISTRIBUTION WIDTH 16.5 % (10.0-14.5); WHITE BLOOD COUNT 6.5 10^3/uL (4.3-11.0)
[2020-01-06 09:39] LABS: ALANINE AMINOTRANSFERASE 24 U/L (0-55); ALBUMIN 3.8 GM/DL (3.2-4.5); ALKALINE PHOSPHATASE 444 U/L (40-136); BILIRUBIN,TOTAL 0.5 MG/DL (0.1-1.0); BUN/CREATININE RATIO 17; CALCIUM 10.2 MG/DL (8.5-10.1); CARBON DIOXIDE 19 MMOL/L (21-32); CHLORIDE 109 MMOL/L (98-107); CREATININE SERUM 0.81 MG/DL (0.60-1.30); GFR ESTIMATED > 60; GLUCOSE 112 MG/DL (70-105); POTASSIUM 4.3 MMOL/L (3.6-5.0); SODIUM 139 MMOL/L (135-145); TOTAL PROTEIN 6.8 GM/DL (6.4-8.2)
[2020-01-13 09:15] LABS: BASOPHILS % (AUTO) 1 % (0-10); EOSINOPHILS # (AUTO) 0.1 10^3/uL (0.0-0.3); EOSINOPHILS % (AUTO) 4 % (0-10); HEMATOCRIT 30 % (35-52); HEMOGLOBIN 9.8 G/DL (11.5-16.0); LYMPHOCYTES % (AUTO) 27 % (12-44); MEAN CORPUSCULAR HEMOGLOBIN 29 PG (25-34); MEAN CORPUSCULAR HGB CONC 32 G/DL (32-36); MEAN CORPUSCULAR VOLUME 89 FL (80-99); MEAN PLATELET VOLUME 10.1 FL (7.4-10.4); MONOCYTES # (AUTO) 0.5 X 10^3 (0.0-1.0); MONOCYTES % (AUTO) 14 % (0-12); NEUTROPHILS % (AUTO) 54 % (42-75); PLATELET COUNT 296 10^3/uL (130-400); RED CELL DISTRIBUTION WIDTH 17.2 % (10.0-14.5); WHITE BLOOD COUNT 3.7 10^3/uL (4.3-11.0)
[2020-01-13 09:34] LABS: BUN/CREATININE RATIO 17; CALCIUM 10.5 MG/DL (8.5-10.1); CARBON DIOXIDE 23 MMOL/L (21-32); CHLORIDE 105 MMOL/L (98-107); CREATININE SERUM 0.87 MG/DL (0.60-1.30); GFR ESTIMATED > 60; GLUCOSE 118 MG/DL (70-105); SODIUM 138 MMOL/L (135-145)
[2020-01-20 09:16] LABS: BASOPHILS # (AUTO) 0.1 10^3/uL (0.0-0.1); BASOPHILS % (AUTO) 1 % (0-10); EOSINOPHILS # (AUTO) 0.2 10^3/uL (0.0-0.3); EOSINOPHILS % (AUTO) 3 % (0-10); HEMATOCRIT 32 % (35-52); HEMOGLOBIN 10.3 G/DL (11.5-16.0); LYMPHOCYTES # (AUTO) 1.1 X 10^3 (1.0-4.0); LYMPHOCYTES % (AUTO) 15 % (12-44); MEAN CORPUSCULAR HEMOGLOBIN 28 PG (25-34); MEAN CORPUSCULAR HGB CONC 32 G/DL (32-36); MEAN CORPUSCULAR VOLUME 89 FL (80-99); MEAN PLATELET VOLUME 9.8 FL (7.4-10.4); MONOCYTES # (AUTO) 0.8 X 10^3 (0.0-1.0); MONOCYTES % (AUTO) 11 % (0-12); NEUTROPHILS % (AUTO) 70 % (42-75); PLATELET COUNT 344 10^3/uL (130-400); RED CELL DISTRIBUTION WIDTH 17.7 % (10.0-14.5); WHITE BLOOD COUNT 7.2 10^3/uL (4.3-11.0)
[2020-01-20 09:36] LABS: BUN/CREATININE RATIO 20; CALCIUM 10.1 MG/DL (8.5-10.1); CARBON DIOXIDE 23 MMOL/L (21-32); CHLORIDE 107 MMOL/L (98-107); CREATININE SERUM 0.81 MG/DL (0.60-1.30); GFR ESTIMATED > 60; GLUCOSE 101 MG/DL (70-105); POTASSIUM 3.9 MMOL/L (3.6-5.0); SODIUM 139 MMOL/L (135-145)
[2020-01-27 09:20] LABS: BASOPHILS % (AUTO) 1 % (0-10); EOSINOPHILS # (AUTO) 0.1 10^3/uL (0.0-0.3); EOSINOPHILS % (AUTO) 2 % (0-10); HEMATOCRIT 29 % (35-52); HEMOGLOBIN 9.3 G/DL (11.5-16.0); LYMPHOCYTES # (AUTO) 1.3 X 10^3 (1.0-4.0); LYMPHOCYTES % (AUTO) 32 % (12-44); MEAN CORPUSCULAR HEMOGLOBIN 28 PG (25-34); MEAN CORPUSCULAR HGB CONC 32 G/DL (32-36); MEAN CORPUSCULAR VOLUME 89 FL (80-99); MEAN PLATELET VOLUME 9.8 FL (7.4-10.4); MONOCYTES # (AUTO) 0.8 X 10^3 (0.0-1.0); MONOCYTES % (AUTO) 19 % (0-12); NEUTROPHILS # (AUTO) 1.8 X 10^3 (1.8-7.8); NEUTROPHILS % (AUTO) 46 % (42-75); PLATELET COUNT 372 10^3/uL (130-400); RED CELL DISTRIBUTION WIDTH 17.7 % (10.0-14.5)
[2020-01-27 09:43] LABS: BUN/CREATININE RATIO 18; CALCIUM 10.6 MG/DL (8.5-10.1); CARBON DIOXIDE 22 MMOL/L (21-32); CHLORIDE 107 MMOL/L (98-107); CREATININE SERUM 0.87 MG/DL (0.60-1.30); GFR ESTIMATED > 60; GLUCOSE 101 MG/DL (70-105); POTASSIUM 4.1 MMOL/L (3.6-5.0); SODIUM 139 MMOL/L (135-145)
[2020-02-03 13:40] LABS: BASOPHILS # (AUTO) 0.1 10^3/uL (0.0-0.1); BASOPHILS % (AUTO) 1 % (0-10); EOSINOPHILS # (AUTO) 0.3 10^3/uL (0.0-0.3); EOSINOPHILS % (AUTO) 4 % (0-10); HEMATOCRIT 30 % (35-52); HEMOGLOBIN 9.7 G/DL (11.5-16.0); LYMPHOCYTES # (AUTO) 1.3 X 10^3 (1.0-4.0); LYMPHOCYTES % (AUTO) 19 % (12-44); MEAN CORPUSCULAR HEMOGLOBIN 28 PG (25-34); MEAN CORPUSCULAR HGB CONC 32 G/DL (32-36); MEAN CORPUSCULAR VOLUME 89 FL (80-99); MEAN PLATELET VOLUME 9.8 FL (7.4-10.4); MONOCYTES # (AUTO) 0.8 X 10^3 (0.0-1.0); MONOCYTES % (AUTO) 13 % (0-12); NEUTROPHILS # (AUTO) 4.2 X 10^3 (1.8-7.8); NEUTROPHILS % (AUTO) 63 % (42-75); PLATELET COUNT 305 10^3/uL (130-400); RED CELL DISTRIBUTION WIDTH 17.8 % (10.0-14.5); WHITE BLOOD COUNT 6.7 10^3/uL (4.3-11.0)
[2020-02-03 14:00] LABS: ALANINE AMINOTRANSFERASE 23 U/L (0-55); ALBUMIN 3.6 GM/DL (3.2-4.5); ALKALINE PHOSPHATASE 349 U/L (40-136); BILIRUBIN,TOTAL 0.3 MG/DL (0.1-1.0); BUN/CREATININE RATIO 16; CALCIUM 9.2 MG/DL (8.5-10.1); CARBON DIOXIDE 23 MMOL/L (21-32); CHLORIDE 109 MMOL/L (98-107); GFR ESTIMATED > 60; GLUCOSE 153 MG/DL (70-105); POTASSIUM 3.9 MMOL/L (3.6-5.0); SODIUM 138 MMOL/L (135-145); TOTAL PROTEIN 6.2 GM/DL (6.4-8.2)
[2020-02-10 09:16] LABS: BASOPHILS % (AUTO) 1 % (0-10); EOSINOPHILS # (AUTO) 0.1 10^3/uL (0.0-0.3); EOSINOPHILS % (AUTO) 1 % (0-10); HEMATOCRIT 30 % (35-52); HEMOGLOBIN 9.6 G/DL (11.5-16.0); LYMPHOCYTES # (AUTO) 1.1 X 10^3 (1.0-4.0); LYMPHOCYTES % (AUTO) 28 % (12-44); MEAN CORPUSCULAR HEMOGLOBIN 29 PG (25-34); MEAN CORPUSCULAR HGB CONC 32 G/DL (32-36); MEAN CORPUSCULAR VOLUME 89 FL (80-99); MEAN PLATELET VOLUME 10.3 FL (7.4-10.4); MONOCYTES # (AUTO) 0.5 X 10^3 (0.0-1.0); MONOCYTES % (AUTO) 12 % (0-12); NEUTROPHILS # (AUTO) 2.2 X 10^3 (1.8-7.8); NEUTROPHILS % (AUTO) 58 % (42-75); PLATELET COUNT 336 10^3/uL (130-400); RED CELL DISTRIBUTION WIDTH 17.2 % (10.0-14.5); WHITE BLOOD COUNT 3.8 10^3/uL (4.3-11.0)
[2020-02-10 09:33] LABS: BUN/CREATININE RATIO 24; CALCIUM 11.2 MG/DL (8.5-10.1); CARBON DIOXIDE 23 MMOL/L (21-32); CHLORIDE 106 MMOL/L (98-107); CREATININE SERUM 0.87 MG/DL (0.60-1.30); GFR ESTIMATED > 60; GLUCOSE 103 MG/DL (70-105); POTASSIUM 4.1 MMOL/L (3.6-5.0); SODIUM 138 MMOL/L (135-145)
[~2020-03-02 12:58] MED LIST changes: +CTR IV SCH; +DEXAMETHASONE IV PRN; +FAMOTIDINE 20MG/2ML IV (CANCER CTR) IV SCH; +GEMCITABINE HCL 1 GM, GEMCITABINE HCL 200 MG in NS (IVPB) CANCER CENTER 100 ML IV SCH; +NS IV 1000 ML (CANCER CTR) IV SCH; +ONDANSETRON IV PRN; +PACLITAXEL PROTEIN IV SCH; +PACLitaxel PROTEIN 170 MG in EMPTY IV BAG (PVC) CANCER CTR 1 EA IV SCH; +[UNRECOGNIZED DRUG - OTHER] IV PRN
[2020-03-02 13:17] LABS: BASOPHILS # (AUTO) 0.1 10^3/uL (0.0-0.1); BASOPHILS % (AUTO) 1 % (0-10); EOSINOPHILS # (AUTO) 0.4 10^3/uL (0.0-0.3); EOSINOPHILS % (AUTO) 4 % (0-10); HEMATOCRIT 34 % (35-52); HEMOGLOBIN 10.7 G/DL (11.5-16.0); LYMPHOCYTES # (AUTO) 1.5 X 10^3 (1.0-4.0); LYMPHOCYTES % (AUTO) 14 % (12-44); MEAN CORPUSCULAR HEMOGLOBIN 28 PG (25-34); MEAN CORPUSCULAR HGB CONC 31 G/DL (32-36); MEAN CORPUSCULAR VOLUME 89 FL (80-99); MEAN PLATELET VOLUME 10.6 FL (7.4-10.4); MONOCYTES % (AUTO) 9 % (0-12); NEUTROPHILS # (AUTO) 7.4 X 10^3 (1.8-7.8); NEUTROPHILS % (AUTO) 72 % (42-75); PLATELET COUNT 380 10^3/uL (130-400); RED CELL DISTRIBUTION WIDTH 17.7 % (10.0-14.5); WHITE BLOOD COUNT 10.2 10^3/uL (4.3-11.0)
[2020-03-02 13:28] LABS: ALBUMIN 3.8 GM/DL (3.2-4.5); POTASSIUM 4.2 MMOL/L (3.6-5.0)
[2020-03-02 13:30] LABS: TOTAL PROTEIN 6.9 GM/DL (6.4-8.2)
[2020-03-02 13:32] LABS: BILIRUBIN,TOTAL 0.6 MG/DL (0.1-1.0)
[2020-03-02 13:34] LABS: CREATININE SERUM 1.2 MG/DL (0.60-1.30)
[2020-03-16 13:20] LABS: BASOPHILS # (AUTO) 0.1 10^3/uL (0.0-0.1); BASOPHILS % (AUTO) 1 % (0-10); EOSINOPHILS # (AUTO) 0.5 10^3/uL (0.0-0.3); EOSINOPHILS % (AUTO) 7 % (0-10); HEMATOCRIT 32 % (35-52); HEMOGLOBIN 10.1 G/DL (11.5-16.0); LYMPHOCYTES # (AUTO) 1.2 X 10^3 (1.0-4.0); LYMPHOCYTES % (AUTO) 17 % (12-44); MEAN CORPUSCULAR HEMOGLOBIN 28 PG (25-34); MEAN CORPUSCULAR HGB CONC 32 G/DL (32-36); MEAN CORPUSCULAR VOLUME 88 FL (80-99); MEAN PLATELET VOLUME 9.9 FL (7.4-10.4); MONOCYTES # (AUTO) 0.8 X 10^3 (0.0-1.0); MONOCYTES % (AUTO) 12 % (0-12); NEUTROPHILS # (AUTO) 4.3 X 10^3 (1.8-7.8); NEUTROPHILS % (AUTO) 63 % (42-75); PLATELET COUNT 366 10^3/uL (130-400); RED CELL DISTRIBUTION WIDTH 16.5 % (10.0-14.5); WHITE BLOOD COUNT 6.8 10^3/uL (4.3-11.0)
[2020-03-16 13:35] LABS: CALCIUM 10.4 MG/DL (8.5-10.1); CREATININE SERUM 0.9 MG/DL (0.60-1.30); POTASSIUM 3.8 MMOL/L (3.6-5.0)
== END 2020-03-15 | disposition home or self-care (01) ==
LOC: ONC 12:58
PROVIDERS: ATTEND Internal Medicine Hematology & Oncology
DX: Z51.11 Encounter for antineoplastic chemotherapy (principal); C25.0 Malignant neoplasm of head of pancreas; R16.0 Hepatomegaly, not elsewhere classified
CPT/HCPCS: 36591; 80048; 80053; 85025; 96375; 96413; 96417

== ENCOUNTER → 2020-03-24 | Outpatient (CLI) | payer MEDICARE ==
[~2020-03-24] MED LIST changes: +CATHETER FLUSH 10 ML SYR IV PRN; -CTR IV SCH; -DEXAMETHASONE IV PRN; -FAMOTIDINE 20MG/2ML IV (CANCER CTR) IV SCH; -GEMCITABINE HCL 1 GM, GEMCITABINE HCL 200 MG in NS (IVPB) CANCER CENTER 100 ML IV SCH; +HOLD METFORMIN - RECEIVED CONTRAST 20 ML VIAL IV SCH; +IOHEXOL 350 MG/ML 100 ML (OMNIPAQUE 350) VIAL IV ONE; +NS 100 ML (IVPB) BAG IV ONE; -NS IV 1000 ML (CANCER CTR) IV SCH; -ONDANSETRON IV PRN; -PACLITAXEL PROTEIN IV SCH; -PACLitaxel PROTEIN 170 MG in EMPTY IV BAG (PVC) CANCER CTR 1 EA IV SCH; -[UNRECOGNIZED DRUG - OTHER] IV PRN
--- NOTE | 2020-03-24 11:27 | Diagnostic Imaging Report ---
PROCEDURE: CT abdomen and pelvis with contrast. TECHNIQUE: Multiple contiguous axial images were obtained through the abdomen and pelvis after administration of intravenous contrast. Auto Exposure Controls were utilized during the CT exam to meet ALARA standards for radiation dose reduction. INDICATION: Pancreatic cancer, follow-up. COMPARISON: Correlation is made with prior CT from 09/08/2019. FINDINGS: The lung bases are clear. Multiple low-density lesions are identified in the liver. There has been an increase in overall number and size of the lesions throughout the liver, consistent with hepatic metastatic disease. Largest lesion is in the dome of the right lobe of approximately 4 cm in size. Patient does have a biliary stent on today's exam. There has been improvement in the previously noted biliary ductal dilatation. The ill-defined low-density mass in the head of the pancreas is difficult to measure on today's exam. Overall size of the pancreatic head appears similar. Pancreatic body and tail are unremarkable. The spleen is unremarkable. No adrenal mass is detected. Kidneys are unremarkable. Aorta is nonaneurysmal. No central retroperitoneal or mesenteric lymphadenopathy is seen. The small and large bowel loops are nonobstructed. There is diverticulosis of the sigmoid but no evidence of acute diverticulitis. Bladder is unremarkable. There is no free fluid or fluid collection. No pelvic lymphadenopathy is seen. Postop changes of posterior instrumented fusion in the lower lumbar spine are noted. IMPRESSION: Overall increase in size and number of low-density solid masses throughout the liver consistent, with worsening hepatic metastatic disease. Overall pancreas appears to be stable. There has been placement of a common duct stent with improvement in previously noted intrahepatic and extrahepatic biliary ductal dilatation. Dictated by: Dictated on workstation # [id number]
== END ==
LOC: RAD 10:13
PROVIDERS: ATTEND Internal Medicine Hematology & Oncology
DX: C25.0 Malignant neoplasm of head of pancreas (principal); C78.7 Secondary malignant neoplasm of liver and intrahepatic bile duct
CPT/HCPCS: 74177

== ENCOUNTER 2020-03-30 14:05 | Outpatient (RCR) | payer MEDICARE ==
[2020-03-16 13:20] LABS: BASOPHILS # (AUTO) 0.1 10^3/uL (0.0-0.1); BASOPHILS % (AUTO) 1 % (0-10); EOSINOPHILS # (AUTO) 0.5 10^3/uL (0.0-0.3); EOSINOPHILS % (AUTO) 7 % (0-10); HEMATOCRIT 32 % (35-52); HEMOGLOBIN 10.1 G/DL (11.5-16.0); LYMPHOCYTES # (AUTO) 1.2 X 10^3 (1.0-4.0); LYMPHOCYTES % (AUTO) 17 % (12-44); MEAN CORPUSCULAR HEMOGLOBIN 28 PG (25-34); MEAN CORPUSCULAR HGB CONC 32 G/DL (32-36); MEAN CORPUSCULAR VOLUME 88 FL (80-99); MEAN PLATELET VOLUME 9.9 FL (7.4-10.4); MONOCYTES # (AUTO) 0.8 X 10^3 (0.0-1.0); MONOCYTES % (AUTO) 12 % (0-12); NEUTROPHILS # (AUTO) 4.3 X 10^3 (1.8-7.8); NEUTROPHILS % (AUTO) 63 % (42-75); PLATELET COUNT 366 10^3/uL (130-400); WHITE BLOOD COUNT 6.8 10^3/uL (4.3-11.0)
[2020-03-16 13:35] LABS: CALCIUM 10.4 MG/DL (8.5-10.1); CREATININE SERUM 0.9 MG/DL (0.60-1.30); POTASSIUM 3.8 MMOL/L (3.6-5.0)
[~2020-03-30 14:05] MED LIST changes: -CATHETER FLUSH 10 ML SYR IV PRN; +FAMOTIDINE 20MG/2ML IV (CANCER CTR) IV SCH; +GEMCITABINE HCL 1 GM, GEMCITABINE HCL 200 MG in NS (IVPB) CANCER CENTER 100 ML IV SCH; -HOLD METFORMIN - RECEIVED CONTRAST 20 ML VIAL IV SCH; -IOHEXOL 350 MG/ML 100 ML (OMNIPAQUE 350) VIAL IV ONE; -NS 100 ML (IVPB) BAG IV ONE; +NS IV 1000 ML (CANCER CTR) IV SCH; +PACLitaxel PROTEIN 170 MG in EMPTY IV BAG (PVC) CANCER CTR 1 EA IV SCH
== END 2020-06-14 | disposition home or self-care (01) ==
LOC: ONC 14:05
PROVIDERS: ATTEND Internal Medicine Hematology & Oncology
DX: Z51.11 Encounter for antineoplastic chemotherapy (principal); C25.0 Malignant neoplasm of head of pancreas; R16.0 Hepatomegaly, not elsewhere classified
CPT/HCPCS: 36591; 80048; 85025; 96375; 96413; 96417; 99213

== ENCOUNTER 2020-04-20 09:18 | Outpatient (RCR) | payer MEDICARE ==
[~2020-04-20 09:18] MED LIST changes: -FAMOTIDINE 20MG/2ML IV (CANCER CTR) IV SCH; -GEMCITABINE HCL 1 GM, GEMCITABINE HCL 200 MG in NS (IVPB) CANCER CENTER 100 ML IV SCH; -NS IV 1000 ML (CANCER CTR) IV SCH; -PACLitaxel PROTEIN 170 MG in EMPTY IV BAG (PVC) CANCER CTR 1 EA IV SCH
[2020-04-20 09:39] LABS: BASOPHILS # (AUTO) 0.1 10^3/uL (0.0-0.1); BASOPHILS % (AUTO) 0 % (0-10); EOSINOPHILS # (AUTO) 0.7 10^3/uL (0.0-0.3); EOSINOPHILS % (AUTO) 4 % (0-10); HEMATOCRIT 35 % (35-52); HEMOGLOBIN 11.3 G/DL (11.5-16.0); LYMPHOCYTES # (AUTO) 1.1 X 10^3 (1.0-4.0); LYMPHOCYTES % (AUTO) 6 % (12-44); MEAN CORPUSCULAR HEMOGLOBIN 28 PG (25-34); MEAN CORPUSCULAR HGB CONC 33 G/DL (32-36); MEAN CORPUSCULAR VOLUME 85 FL (80-99); MEAN PLATELET VOLUME 10.9 FL (7.4-10.4); MONOCYTES # (AUTO) 1.6 X 10^3 (0.0-1.0); MONOCYTES % (AUTO) 8 % (0-12); NEUTROPHILS # (AUTO) 15.7 X 10^3 (1.8-7.8); NEUTROPHILS % (AUTO) 82 % (42-75); PLATELET COUNT 289 10^3/uL (130-400); WHITE BLOOD COUNT 19.2 10^3/uL (4.3-11.0)
[2020-04-20 10:00] LABS: ALANINE AMINOTRANSFERASE 35 U/L (0-55); ALBUMIN 3.4 GM/DL (3.2-4.5); ALKALINE PHOSPHATASE 554 U/L (40-136); BILIRUBIN,TOTAL 0.9 MG/DL (0.1-1.0); BUN/CREATININE RATIO 17; CALCIUM 12.9 MG/DL (8.5-10.1); CARBON DIOXIDE 25 MMOL/L (21-32); CHLORIDE 105 MMOL/L (98-107); CREATININE SERUM 0.82 MG/DL (0.60-1.30); GFR ESTIMATED > 60; GLUCOSE 118 MG/DL (70-105); POTASSIUM 3.5 MMOL/L (3.6-5.0); SODIUM 140 MMOL/L (135-145); TOTAL PROTEIN 6.4 GM/DL (6.4-8.2)
[2020-04-20] MEDS ORDERED: ZOLEDRONIC ACID (CANCER CTR) 4 MG in NS (IVPB) CANCER CENTER 100 ML IV ONE (10:35)
== END 2020-07-19 | disposition home or self-care (01) ==
LOC: ONC 09:18
PROVIDERS: ATTEND Internal Medicine Hematology & Oncology
DX: Z51.11 Encounter for antineoplastic chemotherapy (principal); C25.9 Malignant neoplasm of pancreas, unspecified; E83.52 Hypercalcemia; J30.2 Other seasonal allergic rhinitis; M19.90 Unspecified osteoarthritis, unspecified site; E78.00 Pure hypercholesterolemia, unspecified; R17 Unspecified jaundice; E03.9 Hypothyroidism, unspecified
CPT/HCPCS: 80053; 85025; 96365; G0463; 36591